=== PATIENT | female | born 1985 | race Two or more races ===

== ENCOUNTER 2024-09-21 08:30 | Outpatient (REF) | payer MEDICAID, SELFPAY ==
--- OUTSIDE RECORDS SUMMARY | 2024-09-21 08:40 | XMS_ITS | Encounter Summary ---
Author Organization [employer] Address [address] [place] [address] Care Team Providers Care Demand Equipment Repairer Name Role Phone Unavailable Primary Care Provider Unavailabl e Reason for Visit * Reason Onset Date Comments Chart Prep 09/19/2024 Encounter Details Date Type Department Care Team ([facility] st Contact Info) Description 09/19/2024 Telephone [facility] [address], [place] [phone] Sara Bolton MA Chart Prep Social History Tobacco Use Types Packs/Day Years Used Date Smoking Tobacco: Never Assessed Depression Answer Date Recorded Patient Health Questionnaire-9 Score 16 09/20/2024 Patient Health Questionnaire-9 Score 16 09/20/2024 Last PHQ-9: Questionnaire Data Not on file 0 09/20/2024 Housing Stability Answer Date Recorded What is your housing situation today? I have derek angel 09/12/[address] you li ve. Do you have problems with any of the following? Pests such as bugs, ants, or mice 09/12/2024 Food Insecurity Answer Date Recorded Within the past 12 months, y ou worried that your food would run out before you got money to buy more: Never True 09/12/2024 Within the past 12 months,th e food you bought just didn't last and you didn't have enough money to get more: Never True Transportation Answer Date Recorded In the past 12 months, has l ack of transportation kept you from medical appts, meetings, work or from getting things needed for daily living? No 09/12/2024 Utilities Answer Date Recorded In the past 12 months, has t he electric, gas, oil or water company threatened to shut off services in your home? No 09/12/2024 Depression Answer Date Recorded Patient Health Questionnaire-2 Score 3 09/20/2024 Internet Access Answer Date Recorded Internet Access Q1 Yes 09/12/2024 Internet Access Q2 Not on file 09/12/2024 Comments Unknown Sex and Gender Information Value Date Recorded Sex Assigned at Female 06/25/2024 10:10 AM EST Legal Sex Female 10:09 AM EST Gender Identity Female 09/19/2024 9:18 AM EDT Sexual Orientation Don't know 09/19/2024 9: 18 AM EDT documented as of this encounter Miscellaneous Notes * Telephone Encounter - Sara Bolton MA - 09/19/2024 11:23 AM EDT Chart Prep Labs: not applicable Images: not applicable Referrals: not applicable Vaccines due: Covid, Flu, and Hep B Screenings: mammogram, pap smear, and Lipid panel, HIV, Hep C Overdue care gaps: SBIRT, PHQ-9, NIDIA-7, Disability screen, and Tobacco documented in this encounter Plan of Treatment Upcoming Encounters Date Type Department Care Team (Late st Contact Info) Description 10/05/2024 11:00 AM EDT Telemedicine [facility] [address] [place] [phone] documented as of this encounter Visit Diagnoses Not on filedocumented in this encounter
[2024-09-21 11:14] LABS: MANUAL DIFF FLAG NO
[2024-09-21 11:34] LABS: Basophils Absolute Auto 0.1 X10*3/uL (0.0-0.2); Basophils Percent Auto 0.7 % (0-2); Eosinophils Absolute Auto 0.1 X10*3/uL (0.0-0.4); Hematocrit 39.2 % (37.0-47.0); Hemoglobin 12.6 g/dl (12.0-16.0); Imm Gran Abs Auto 0.02 X10*3/uL (0.00-0.03); Imm Gran Pct Auto 0.3 % (0.0-0.4); Lymphocytes Percent Auto 29.8 % (20-40); Mean Corpuscular HGB Conc 32.1 g/dl (31.0-35.0); Mean Corpuscular Hemoglobin 27.4 pg (27.0-33.0); Mean Corpuscular Volume 85.2 fL (80.0-98.0); Monocytes Absolute Auto 0.6 X10*3/uL (0.1-1.2); Monocytes Percent Auto 8.6 % (2-11); Neutrophils Absolute Auto 4.1 x10*3/uL (2.0-8.3); Neutrophils Percent Auto 59.6 % (45-73); Red Cell Distribution Width 13.1 % (11.0-16.0); White Blood Count 6.8 X10*3/uL (4.8-10.8)
[2024-09-21 12:01] LABS: Mean Platelet Volume 12.5 fL (9.4-12.3); Platelet Count 80 X10*3/uL (160-400)
[2024-09-21 12:11] LABS: Alanine Aminotransferase 20 U/L (0-31); Albumin Level 4.4 g/dL (3.5-5.0); Alkaline Phosphatase 53 U/L (39-117); Anion Gap 12 (12-20); Aspartate Amino Transferase 23 U/L (5-31); Bilirubin Total 0.6 mg/dL (0.0-1.0); Blood Urea Nitrogen 15 mg/dL (9-16); Calcium 9.6 mg/dL (8.4-10.2); Carbon Dioxide 28 mmol/L (22-29); Chloride 107 mmol/L (96-108); Cholesterol 187 mg/dL (<200); Estimated Glomerular Filt Rate > 60; Glucose Random 87 mg/dL (60-115); HDL Cholesterol 41 mg/dL (>40); LDL Cholesterol Calculated 119 mg/dL (<100); Potassium 3.7 mmol/L (3.3-5.1); Sodium 143 mmol/L (135-145); TSH reflex Free T4 1.72 uIU/mL (0.32-4.0); Total Protein 7.8 g/dL (6.5-8.0); Triglycerides 139 mg/dL (<150)
[2024-09-22 06:04] LABS: Follicle Stimulating Hormone 8.5 mIU/mL
== END 2024-09-21 08:31 | disposition home or self-care (01) ==
LOC: HO.HHCL 08:30
PROVIDERS: Visit Provider Internal Medicine Geriatric Medicine
DX: I10 Essential (primary) hypertension (principal); F41.1 Generalized anxiety disorder; F43.10 Post-traumatic stress disorder, unspecified; Z98.84 Bariatric surgery status; R23.2 Flushing
CPT/HCPCS: 36415; 80053; 80061; 83001; 83002; 84443; 85025

== ENCOUNTER 2024-10-01 08:13 | Outpatient (REF) | payer MEDICAID, SELFPAY ==
[2024-10-01 11:31] LABS: MANUAL DIFF FLAG NO
[2024-10-01 11:39] LABS: Basophils Absolute Auto 0.1 X10*3/uL (0.0-0.2); Basophils Percent Auto 0.6 % (0-2); Eosinophils Absolute Auto 0.1 X10*3/uL (0.0-0.4); Eosinophils Percent Auto 1.1 % (0-4); Hematocrit 36.7 % (37.0-47.0); Hemoglobin 11.6 g/dl (12.0-16.0); Imm Gran Abs Auto 0.02 X10*3/uL (0.00-0.03); Imm Gran Pct Auto 0.3 % (0.0-0.4); Lymphocytes Absolute Auto 2.1 X10*3/uL (1.2-4.9); Lymphocytes Percent Auto 26.6 % (20-40); Mean Corpuscular HGB Conc 31.6 g/dl (31.0-35.0); Mean Corpuscular Hemoglobin 27.1 pg (27.0-33.0); Mean Corpuscular Volume 85.7 fL (80.0-98.0); Monocytes Absolute Auto 0.7 X10*3/uL (0.1-1.2); Monocytes Percent Auto 8.9 % (2-11); Neutrophils Absolute Auto 4.9 x10*3/uL (2.0-8.3); Neutrophils Percent Auto 62.5 % (45-73); Red Blood Count 4.28 X10*6/uL (4.20-5.50); Red Cell Distribution Width 12.9 % (11.0-16.0); White Blood Count 7.9 X10*3/uL (4.8-10.8)
[2024-10-01 11:41] LABS: Platelet Count 69 X10*3/uL (160-400)
== END 2024-10-01 08:14 | disposition home or self-care (01) ==
LOC: HO.HHCL 08:13
PROVIDERS: Visit Provider Internal Medicine Geriatric Medicine
DX: D69.6 Thrombocytopenia, unspecified (principal)
CPT/HCPCS: 36415; 85025

== ENCOUNTER 2024-10-17 09:11 | Outpatient (REF) | payer MEDICAID, SELFPAY ==
--- NOTE | ~2024-10-17 | XR_ITS ---
EXAMINATION: XR SHOULDER, RIGHT CLINICAL INFORMATION: Several day h/o right shoulder pain after lifting heavy object COMPARISON: None available. TECHNIQUE: AP external rotation, Grashey, scapular Y, and axillary views of the right shoulder. FINDINGS: No acute cortical disruption or malalignment. [place]-shaped calcification at the supraspinatus tendon insertion near the greater tuberosity of the right humerus. No lytic or blastic lesions. XR/XR shoulder RT min 2V IMPRESSION: Probable calcific tendinosis/tendinopathy, supraspinatus. Electronically signed by: Ramos Chaney MD 10/17/2024 09:31 AM EDT
--- OUTSIDE RECORDS SUMMARY | 2024-10-17 08:40 | XMS_ITS | Encounter Summary ---
Author Organization [employer] Address [address] [place] [address] Care Team Providers Care Sausage Maker Name Role Phone Name, Golden NOLASCO Primary Care Provider [phone] Reason for Referral * Consultation (Routine) - Pending Review Specialty Diagnoses / Procedures Referred By Saira yang Referred To Contact Orthopaedic Surgery Diagnoses Acute pain of right shoulder Abraham Wills MD [address] [place] [phone] Phone: tel: fax: Referral ID Status Reason Start Date Expiration Date Visits Requested Visits Authorized [id number] Pending Review Specialty Services Required 10/17/2024 10/17/2025 1 1 Reason for Visit * Reason Comments Arm Pain Encounter Details Date Type Department Care Team (Late st Contact Info) Description 10/17/2024 8:40 AM EDT Office Visit [facility] [address], [place] [phone] Acute pain of right shoulder (Primary Dx); Essential hypertension Social History Tobacco Use Types Packs/Day Years Used Date Smoking Tobacco: Never Smokeless Tobacco: Never Alcohol Use Standard Drinks/Week Comments Not Currently 0 (1 standard drink = 0.6 oz pur e alcohol) wine Depression Answer Date Recorded Patient Health Questionnaire-9 [...] Access Q2 Not on file 09/12/2024 Comments No Sex and Gender Information Value Date Recorded Sex Assigned at Female 06/25/2024 10:10 AM EST Legal Sex Female 10:09 AM EST Gender Identity Female 09/19/2024 9:18 AM EDT Sexual Orientation Don't know 09/19/2024 9: 18 AM EDT 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 Not on file Not on file Not on f ile documented as of this encounter Last Filed Vital Signs Vital Sign Reading Time Taken Comments Blood Pressure 140/96 10/17/2024 8:40 AM EDT Man ual Pulse 83 10/17/2024 8:38 AM EDT Temperature 37.1 C (98.7 F) 10/17/2024 8:38 AM EDT Respiratory Rate 18 10/17/2024 8:38 AM EDT Oxygen Saturation 99% 10/17/2024 8:38 AM EDT Inhaled Oxygen Concentration - - Weight 89.3 kg (196 lb 12.8 oz) 10/17/2024 8:38 AM EDT Height - - Body Mass Index 34.86 09/20/2024 10:39 AM EDT documented in this encounter Plan of Treatment Upcoming Encounters Date Type Department Care Team (Late st Contact Info) Description 10/30/2024 9:30 AM EDT Clinical Support [facility] [address] [place] [phone] Scheduled Referrals Name Type Priority Associated Diagnoses Order Schedule Referral to Orthopaedic Surgery Outpatient Referral Routine Acute pain of right shoulder Expected: 10/17/2024 (Approximate), Expires: 10/17/2025 documented as of this encounter Procedures Procedure Name Priority Date/Time Associated Diagnosis Comments XR SHOULDER 2+ VIEWS RIGHT Routine 10/17/2024 8:38 AM EDT Acute pain of right shoulder documented in this encounter Results * XR Shoulder 2+ Views Right (10/17/2024 8:38 AM EDT) Anatomical Region Laterality Modality Upper Extremities, Shoulder Right Radi ographic Imaging 10/17/2024 8:38 AM EDT Narrative 10/17/2024 9:34 AM EDT [address] [address] XRay Report Signed Patient: Luisana Fine MR#: [id number] : 1985 Acct:[id number] Age/Sex: 39 / F ADM Date: 10/17/24 Loc: HO.HHCX Attending Dr: Abraham Wills MD Ordering Physician: ABRAHAM WILLS MD Date of Service: 10/17/24 Procedure(s): XR shoulder RT min 2V Accession Number(s): [id number] cc: ABRAHAM WILLS MD; Name,Golden NOLASCO EXAMINATION: XR SHOULDER, RIGHT CLINICAL INFORMATION: Several day h/o right shoulder pain after lifting heavy object COMPARISON: None available. TECHNIQUE: AP external rotation, Grashey, scapular Y, and axillary views of the right shoulder. FINDINGS: No acute cortical disruption or malalignment. [place]-shaped calcification at the supraspinatus tendon insertion near the greater tuberosity of the right humerus. No lytic or blastic lesions. XR/XR shoulder RT min 2V IMPRESSION: Probable calcific tendinosis/tendinopathy, supraspinatus. Electronically signed by: Ramos Chaney MD 10/17/2024 09:31 AM EDT RP Dictated By: Ramos Chan MD Signed By: <Electronically signed by Ramos Riggs MD in OV> 10/17/24930 DD/ 7 TD/TT: 10/17/24927 Hand Clipper: Procedure Note Donotuseinterpreter, Image - 10/17/2024 [facility] [address] [place] [address] XRay Report Signed Patient: Luisana Fine CMR#: [id number] : 1985Acct:[id number] Age/Sex: 39 / FADM Date: 10/17/24 Loc: HO.HHCX Attending Dr: Abraham Wills MD Ordering Physician: ABRAHAM WILLS MD Date of Service: 10/17/24 Procedure(s): XR shoulder RT min 2V Accession Number(s): [id number] cc: ABRAHAM WILLS MD; Golden Mclaughlin MD EXAMINATION: XR SHOULDER, RIGHT CLINICAL INFORMATION: Several day h/o right shoulder pain after lifting heavy object COMPARISON: None available. TECHNIQUE: AP external rotation, Grashey, scapular Y, and axillary views of the right shoulder. FINDINGS: No acute cortical disruption or malalignment. [place]-shaped calcification at the supraspinatus tendon insertion near the greater tuberosity of the right humerus. No lytic or blastic lesions. XR/XR shoulder RT min 2V IMPRESSION: Probable calcific tendinosis/tendinopathy, supraspinatus. Electronically signed by: Ramos Chaney MD 10/17/2024 09:31 AM EDT Dictated By: Ramos Chan MD Signed By: <Electronically signed by Ramos Riggs MDin OV> 10/17/24930 DD/ 7 TD/TT: 10/17/24927 Hand Clipper: Abraham Wills MD IMG XR PROCEDURES Edited Result - Final documented in this encounter Visit Diagnoses Diagnosis Acute pain of right shoulder- Primary Essential hypertension Unspecified essential hypertension documented in this encounter Additional Health Concerns Assessment Noted Time PHQ-9 Depression Total Score: 16 09/20/2 025 11:16 AM EDT documented as of this encounter Care Teams Sausage Maker Relationship Specialty Start Date End Date Lissette, MD Golden [address] [place] [address] PCP - General Internal Medicine 09/20/24 documented as of this encounter
== END 2024-10-17 09:12 | disposition home or self-care (01) ==
LOC: HO.HHCX 09:11
PROVIDERS: PCP Internal Medicine Geriatric Medicine; Visit Provider Emergency Medicine
DX: M25.511 Pain in right shoulder (principal)
CPT/HCPCS: 73030

== ENCOUNTER → 2024-10-17 09:18 | Outpatient (BNV) | payer MEDICAID, SELFPAY | PROVIDERS: PCP Internal Medicine Geriatric Medicine; Visit Provider Radiology Diagnostic Radiology | DX: M25.511 Pain in right shoulder (principal) | CPT/HCPCS: 73030 ==

== ENCOUNTER 2024-11-01 15:31 | Outpatient (AMB) | payer MEDICAID, SELFPAY ==
--- NOTE | 2024-11-01 15:33 | MHC.OFFVIS ---
Vital Signs 11/01/24 15:36 Height 5 ft 3 in Weight 196 lb BMI 34.7 BP 133/78 Blood Pressure Location Rt brachial Position Sitting Pulse 89 Intake Visit Reasons: abd wall hernia Intake Note: Patient referred by pcp Dr. Mclaughlin for abdominal hernia. Patient c/o: painful when sitting for long period of time. Hx of umbilical hernia repair some time in 2017. Computed Tomography Scanner Operator Required: Yes Computed Tomography Scanner Operator Name: Nickie GOEL Accompanied by: Self / Same As Patient Allergies No Known Allergies Allergy (Verified 11/01/24 15:38) Medication List - Last Reconciled 11/01/24 by Messi Darling MD losartan 25 mg PO DAILY HPI HPI abd wall hernia: Details: [age] year old female referred for a possible epigastric hernia. She says she has had this mass on the epigastric area for over a year now. She says that this seems to have increased in size. She has describes discomfort She denies GI complaints She has had abdominoplasty in the past. She has had umbilical hernia repair, and cholecystectomy. She also has had bariatric surgery She denies GI complaints. [facility] Medical History Epigastric hernia Migraine with visual aura Helicobacter positive gastritis Endometriosis Dysmenorrhea Binge eating disorder Class 1 obesity due to excess calories with serious comorbidity and body mass index (BMI) of 33.0 to 33.9 in adult Generalized anxiety disorder Essential hypertension Seasonal allergies Post traumatic stress disorder (PTSD) Acanthosis nigricans Abnormal facial hair Bilateral carpal tunnel syndrome Adjustment disorder with anxious mood Uses intrauterine device for control History of Holter monitoring Fibroids Osteoarthritis of right hand Surgical History History of weight loss surgery Social History Patient Tobacco Use Status: Never used Tobacco Review of Systems Const Denies chills and Denies fever(s) Card Denies chest pain, Denies dyspnea and Denies dyspnea on exertion Resp Denies cough, Denies dyspnea and Denies dyspnea on exertion GI Denies hematochezia and Denies change in bowel habits Denies hematuria Musc Denies back pain and Denies limited range of motion Neuro Denies focal weakness and Denies convulsions Psych Denies depression and Denies mood swings Physical Exam Vital Signs: Last Vital Signs Pulse 89 11/01/24 15:36 BP 133/78 11/01/24 15:36 BMI result Body Mass Index 34.7 Const General: comfortable and no acute distress Orientation/consciousness: patient oriented x3 Neck Neck: Yes no lymphadenopathy Resp Auscultation: clear to auscultation bilaterally Cardio Rhythm: regular rhythm GI Other: Epigastric mass, about 5 cm across, not reducible, not tender, no skin changes Palpation (GI): Soft to palpation, nontender and no guarding Neuro General: patient oriented x3 Assessment & Plan Assessment & Plan (1) Epigastric hernia: Code(s): K43.9 - Ventral hernia without obstruction or gangrene Category: Medical Plan: She has this large epigastric mass that appears to be a hernia. This has not reducible. I am going to order for a CAT scan to define this hernia so we can plan for approach to surgery I will see her in the office after her CAT scan. I did explain to her briefly the technique of repair of the epigastric hernia She is comfortable with the plan. Orders: Orders CT abdomen pelvis wo IV con Today K43.9 - Ventral hernia without obstruction or gangrene Coding Level of Care Code New Pt Level 3 (84613) Diagnoses Epigastric hernia K43.9
--- OUTSIDE RECORDS SUMMARY | 2024-11-01 15:34 | XMS_ITS | Clinical Summary ---
Author Organization [employer] Address [address] [facility] [address] [place] [address] Care Team Providers Care Spray Stainer Name Role Phone Name, Golden NOLASCO Primary Care Provider Allergies Active Allergy Reactions Criticality Noted Date Comments Chlorthalidone Dizziness 05/25/2024 Dizziness and imbalance Medications * This document contains information received from the source organization and may not represent a complete record from that organization. Blood Pressure kitIndications:E ssential hypertension Use once a day 1 kit 5 Active lidocaine (Lidoderm) 5 % patch Apply 1 patch topically Once per day. Remove & discard patch within 12 hours or as directed by MD. 30 patch 2 5 10/18/19 26 Active tiZANidine (Zanaflex) 2 MG tablet Take 1 tablet (2 mg) by mouth if needed in the morning and at bedtime for muscle spasms. 30 tablet 1 5 Active losartan (Cozaar) 50 MG tablet Take 1 tablet (50 mg) by mouth Once per day. 30 tablet 11 5 10/31/19 26 Active losartan (Cozaar) 25 MG tablet Take 1 tablet (25 mg) by mouth Once per day. 30 tablet 2 5 10/31/19 25 Discontin ued(Dose adjustmen t) Active Problems Problem Noted Date Diagnosed Date Binge eating disorder 09/19/2024 Class 1 obesity 09/19/2024 Dysmenorrhea 09/19/2024 Endometriosis 09/19/2024 Helicobacter positive gastritis 09/19/2024 Migraine with visual aura 09/19/2024 Uses Bulgarian as primary spoken language 09/20/19 25 Class 1 obesity due to exces s calories with serious comorbidity and body mass index (BMI) of 33.0 to 33.9 in adult 10/17/2023 Generalized anxiety disorder 04/15/2022 Essential hypertension 02/25/2022 Seasonal allergies 10/21/2021 PTSD (post-traumatic stress disorder) 11/14/2019 Abnormal facial hair 12/10/2018 Acanthosis nigricans 12/10/2018 History of weight loss surgery 12/10/2018 Bilateral carpal tunnel syndrome 11/14/2018 Overview (09/19/2024): Per [facility] 09/15/2018 Electromyography reports Impression: abnormal study. 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 Expires on 08/03/24. Managed by [employer] perdue women History of Holter monitoring 08/07/2018 Overview (09/19/2024): [facility]3] Holter Report -07/20/18 Predominant rhythm is normal sinus rhythm. The average heart rate is 96 bpm. The minimum heart rate is 53 beats per minute, sinus bradycardia. The maximum heart rate is 189 beats per minute, sinus tachycardia. Occasional supraventricular ectopy. No AF,AFL,or SVT noted Occasional ventricular ectopy. No VT noted No high degree AV block. Prolonged pauses are not present. Symptoms did not correspond to any changes in heart rate or rhythm. Fibroids 07/05/2018 Bony growth 06/16/2018 Overview (09/19/2024): Left Hand Xray-03/30/18 at [facility] Impression: Negative. No abnormal bony growth is seen the DIP Joints. Intermittent pain and swelling of hand 9 Osteoarthritis of right hand 06/15/2018 Overview (09/19/2024): Right Hand Xray-03/30/18 at [facility]: There is mild DIP joint space narrowing most notably in the second and third fingers with early marginal osteophyte formation off the third DIP joint with mild overlying soft tissue prominence this region. No radiopaque foreign bodies are seen. No soft tissue gas. Impression: Mild second and third DIP osteoarthritis Encounters * This document contains information received from the source organization and may not represent a complete record from that organization. Date Type Department Care Team Description 10/30/2024 9:30 AM EDT Telemedicine [address] [address] Mary Reed, MAIA Essential hypertension 10/30/[address] [address] Golden Mclaughlin MD 10/30/2024 Travel 10/29/2024 Travel 10/17/2024 8:40 AM EDT Office Visit [facility] [address] [place] [phone] Abraham Wills MD Acute pain of right shoulder (Primary Dx); Essential hypertension 10/17/2024 Results Follow-Up [facility] [address] [place] [phone] Abraham Wills MD XR Shoulder 2+ Views Right 10/17/2024 Travel 10/05/2024 11:00 AM EDT Telemedicine [address] [address] Maria Alejandra Ryder RN Essential hypertension [I10] 09/26/2024 Results Follow-Up [address] [address] Golden Mclaughlin MD CBC auto differential, Comprehensive Metabolic Panel, Lipid Panel, Standard, Additional followed-up results: 4 09/20/2024 10:45 AM EDT Office Visit [address] [phone] Golden Mclaughlin MD Essential hypertension (Primary Dx); Generalized anxiety disorder; PTSD (post-traumatic stress disorder); History of weight loss surgery; Hot flashes; Abdominal wall hernia; Blurred vision, bilateral 09/20/2024 Travel 09/19/[address] [address] Saar Bolton [place] Chart Prep 09/17/2024 Patient Outreach [address] [phone] Golden Mclaughlin MD Care Coordination (CHW outreach for SDOH food needs-referral completed /) 09/12/2024 Patient Outreach [facility] [address] [place] [phone] Golden Mclaughlin MD Care Coordination (CHW outreach for SDOH PT-1 and food needs-LVM ) 09/12/2024 Patient Outreach [facility] [address] [place] [address] Golden Mclaughlin MD Pre-visit Planning ((SDOH screening positive tobacco screening negative) ) from Last 3 Months Immunizations Immunization Administration Dates Next Due Influenza Injectable Quadriv alant Preservative Free IIV4 MDCK 02/29/2020 Influenza injectable quadrivalent preservative f ree 04/06/2022,04/12/2019 Influenza, IIV3, injectable 03/08/2018, 5 Tdap 04/12/2019 Social History Tobacco Use Types Packs/Day Years Used Date Smoking Tobacco: Never Smokeless Tobacco: Never Tobacco Cessation:Counseling Given: Not Answered Alcohol Use Standard Drinks/Week Comments Not Currently [...] the past 12 months, has t he [employer], [employer], oil or water [employer] threatened to shut off services in your [...] Not on file Not on f ile Last Filed Vital Signs Vital Sign Reading [...] 12.8 oz) 10/17/2024 8:38 AM EDT Height 160 cm (5' 3 ) 09/20/2024 10:39 AM EDT Body Mass Index 34.86 09/20/2024 10:39 AM EDT Plan of Treatment Upcoming Encounters Date Type Department Care Team (Late st Contact Info) Description 11/13/2024 9:30 AM EDT Telemedicine [facility] [address] [place] [address] 01/08/2025 9:45 AM EDT Office Visit [facility] [address] [place] [address] Mallory Arita, OD [address] [place] [address] Health Maintenance Due Date Last Done Comments Family Planning (PISQ) 1998 Hepatitis C Screening 2001 Hepatitis B Vaccines (1 of 3 - 19+ 3-dose series) 2002 Pap Smear 2004 Cervical Cancer Screening 2013 HPV/Cotest 2013 Mammogram 2023 COVID-19 Vaccine ( season) 2024 12/26/2020, 12/05/2020 Influenza Vaccine (#1) 2024 2, 02/29/2020, 04/12/2019, Additional history exists Depression Monitoring 2025 09/20/2024, 025 SDOH Screening 09/12/2025 09/12/2024 Alcohol/Substance Use Screening 09/20/2025 09/20/2024 Disability Screening 10/29/2025 10/29/2024 Tobacco Screening 10/30/2025 10/30/2024 DTaP/Tdap/Td Vaccines (2 - Td or Tdap) 04/12/2029 04/12/2019 Lipid Panel 09/21/2029 09/21/2024 Zoster Vaccines (1 of 2) 2033 RSV Patients and Patients Aged 60 years or older (1 - 1-dose 75+ series) 2058 HIV Screening Completed 03/29/2018 HIB Vaccines Aged Out No longer eligi ble based on patient's age to complete this topic HPV Vaccines Aged Out No longer eligi ble based on patient's age to complete this topic Hepatitis A Vaccines Aged Out No long er eligible based on patient's age to complete this topic IPV Vaccines Aged Out No longer eligi ble based on patient's age to complete this topic Meningococcal B Vaccine Aged Out No l onger eligible based on patient's age to complete this topic Meningococcal Vaccine Aged Out No doroteo rica eligible based on patient's age to complete this topic Pneumococcal Vaccine: Pediatrics (0 to 5 Years) and At-Risk Patients (6 to 49) Years Aged Out No longer eligible based on patient's age to complete this topic RSV under 20 months Aged Out No longe r eligible based on patient's age to complete this topic Rotavirus Vaccines Aged Out No longer eligible based on patient's age to complete this topic Procedures Procedure Name Priority Date/Time Associated Diagnosis Comments XR SHOULDER 2+ VIEWS RIGHT Routine 10/17/2024 8:38 AM EDT Acute pain of right shoulder CBC WITH AUTO DIFFERENTIAL Routine 10/01/2024 8:15 AM EDT Low platelet count (CMS/HCC) LH Routine 09/21/2024 8:33 AM EDT Essential hypertension Generalized anxiety disorder PTSD (post-traumatic stress disorder) History of weight loss surgery Hot flashes FSH Routine 09/21/2024 8:33 AM EDT Essential hypertension Generalized anxiety disorder PTSD (post-traumatic stress disorder) History of weight loss surgery Hot flashes TSH W/REFLEX TO FT4 Routine 09/21/2024 8 :33 AM EDT Essential hypertension Generalized anxiety disorder PTSD (post-traumatic stress disorder) History of weight loss surgery Hot flashes LIPID PANEL, STANDARD Routine 09/21/2024 8:33 AM EDT Essential hypertension Generalized anxiety disorder PTSD (post-traumatic stress disorder) History of weight loss surgery Hot flashes COMPREHENSIVE METABOLIC PANEL Routine 09/21/2024 8:33 AM EDT Essential hypertension Generalized anxiety disorder PTSD (post-traumatic stress disorder) History of weight loss surgery Hot flashes CBC WITH AUTO DIFFERENTIAL Routine 09/21/2024 8:33 AM EDT Essential hypertension Generalized anxiety disorder PTSD (post-traumatic stress disorder) History of weight loss surgery Hot flashes from Last 3 Months Results * XR Shoulder 2+ Views Right (10/17/2024 8:38 AM EDT) Anatomical Region Laterality Modality Upper Extremities, Shoulder Right Radi ographic Imaging 10/17/2024 8:38 AM EDT Narrative 10/17/2024 9:34 AM EDT [address] [address] XRay Report Signed Patient: Luisana Fine MR#: [id number] : 1985 Acct:[id number] Age/Sex: 39 / F ADM Date: 10/17/24 Loc: HO.HHCX Attending Dr: Abraham Wills MD Ordering Physician: ABRAHAM WILLS MD Date of Service: 10/17/24 Procedure(s): XR shoulder RT min 2V Accession Number(s): [id number] cc: ABRAHAM WILLS MD; Name,Golden NOLASCO EXAMINATION: XR SHOULDER, RIGHT CLINICAL INFORMATION: Several day h/o right shoulder pain after lifting heavy object COMPARISON: None available. TECHNIQUE: AP external rotation, Grashey, scapular Y, and axillary views of the right shoulder. FINDINGS: No acute cortical disruption or malalignment. Wilmar-shaped calcification at the supraspinatus tendon insertion near the greater tuberosity of the right humerus. No lytic or blastic lesions. XR/XR shoulder RT min 2V IMPRESSION: Probable calcific tendinosis/tendinopathy, supraspinatus. Electronically signed by: Ramos Chaney MD 10/17/2024 09:31 AM EDT RP Dictated By: Ramos Chan MD Signed By: <Electronically signed by Ramos Riggs MD in OV> 10/17/2431 DD/ TD/TT: 10/17/2428 Nursing Executive: Procedure Note Donotuseinterpreter, Image - 10/17/[address] [address] XRay Report Signed Patient: Luisana Fine CMR#: [id number] : 1985Acct:[id number] Age/Sex: 39 / FADM Date: 10/17/24 Loc: HO.HHCX Attending Dr: Abraham Wills MD Ordering Physician: ABRAHAM WILLS MD Date of Service: 10/17/24 Procedure(s): XR shoulder RT min 2V Accession Number(s): [id number] cc: ABRAHAM WILLS MD; Name,Golden NOLASCO EXAMINATION: XR SHOULDER, RIGHT CLINICAL INFORMATION: Several day h/o right shoulder pain after lifting heavy object COMPARISON: None available. TECHNIQUE: AP external rotation, Grashey, scapular Y, and axillary views of the right shoulder. FINDINGS: No acute cortical disruption or malalignment. Wilmar-shaped calcification at the supraspinatus tendon insertion near the greater tuberosity of the right humerus. No lytic or blastic lesions. XR/XR shoulder RT min 2V IMPRESSION: Probable calcific tendinosis/tendinopathy, supraspinatus. Electronically signed by: Ramos Chaney MD 10/17/2024 09:31 AM EDT RP Dictated By: Ramos Chan MD Signed By: <Electronically signed by Ramos Riggs MDin OV> 10/17/2431 DD/ 7 TD/TT: 10/17/24927 Nursing Executive: Abraham Wills MD IMG XR PROCEDURES Edited Result - Final * (ABNORMAL) CBC auto differential (10/01/2024 8:15 AM EDT) Only the most recent of2 resultswithin the time period is included. White Blood Count 7.9 4.8 - 10.8 X10*3/uL [facility] Red Blood Count 4.28 4.20 - 5.50 X10*6/uL [facility] Hemoglobin 11.6(L) 12.0 - 16.0 g/dl [facility] Hematocrit 36.7(L) 37.0 - 47.0 % [facility] Mean Corpuscular Volume 85.7 80.0 - 98.0 fL [facility] Mean Corpuscular Hemoglobin 27.1 27.0 - 33.0 pg [facility] Mean Corpuscular HGB Conc 31.6 31.0 - 35.0 g/dl [facility] Red Cell Distribution Width 12.9 11.0 - 16.0 % [facility] Platelet Count 69(L) 160 - 400 X10*3/uL [facility] Mean Platelet Volume 13.0(H) 9.4 - 12.3 fL [facility] Neutrophils Percent Auto 62.5 45 - 73 % [facility] Imm Gran Pct Auto 0.3 0.0 - 0.4 % [facility] Lymphocytes Percent Auto 26.6 20 - 40 % [facility] Monocytes Percent Auto 8.9 2 - 11 % [facility] Eosinophils Percent Auto 1.1 0 - 4 % [facility] Basophils Percent Auto 0.6 0 - 2 % [facility] NRBC Pct Auto 0.0 0.0 - 0.2 /100WBC [facility] Neutrophils Absolute Auto 4.9 2.0 - 8.3 x10*3/uL [facility] Imm Gran Abs Auto 0.02 0.00 - 0.03 X10*3/uL [facility] Lymphocytes Absolute Auto 2.1 1.2 - 4.9 X10*3/uL [facility] Monocytes Absolute Auto 0.7 0.1 - 1.2 X10*3/uL [facility] Eosinophils Absolute Auto 0.1 0.0 - 0.4 X10*3/uL [facility] Basophils Absolute Auto 0.1 0.0 - 0.2 X10*3/uL [facility] NRBC Abs Auto 0.000 0.0 - 0.012 X10*3/uL [facility] Blood Venous blood specimen / Unknown 10/01/2024 8:15 AM EDT 10/01/2024 11:26 AM EDT us Golden Mclaughlin MD LAB BLOOD ORDERABLES Final Resul t Performing Organization Address City/[facility]/ZIP Co de Phone Number [facility] [address] [place] [phone] * TSH W/Reflex to FT4 (09/21/2024 8:33 AM EDT) TSH reflex Free T4 1.72 0.32 - 4.0 uIU/mL [facility] Blood Venous blood specimen / Unknown 09/21/2024 8:33 AM EDT 09/21/2024 11:03 AM EDT us Golden Mclaughlin MD LAB BLOOD ORDERABLES Final Resul t [facility] [address] [place] [phone] * LH (09/21/2024 8:33 AM EDT) Lutenizing Hormone 5.0 mIU/mL [facility] Comment:Reference Range Foll icular Phase 1.9-12.5 Mid-Cycle Peak 8.7-76.3 Luteal Phase 0.5-16.9 Postmenopausal 10.0-54.7THIS TEST WAS PERFORMED AT:[facility] [address] [id number] CORONADO MD Blood Venous blood specimen / Unknown 09/21/2024 8:33 AM EDT 09/21/2024 11:03 AM EDT us Golden Mclaughlin MD LAB BLOOD ORDERABLES Final Resul t Performing Organization Address [facility]/ZIP Co de Phone Number [facility] [address] [place] [phone] * FSH (09/21/2024 8:33 AM EDT) Follicle Stimulating Hormone 8.5 mIU/mL [facility] Comment:Reference Range Foll icular Phase 2.5-10.2 Mid-cycle Peak 3.1-17.7 Luteal Phase 1.5- 9.1 Postmenopausal 23.0-116.3THIS TEST WAS PERFORMED AT:[facility] [address] [id number] CORONADO MD Blood Venous blood specimen / Unknown 09/21/2024 8:33 AM EDT 09/21/2024 11:03 AM EDT us Golden Mclaughlin MD LAB BLOOD ORDERABLES Final Resul t [facility] [address] [place] [phone] * (ABNORMAL) Lipid Panel, Standard (09/21/2024 8:33 AM EDT) Triglycerides 139 <150 mg/dL [facility] Comment:Desirable Triglyceri de: less than 150 mg/dLBorderline High Triglyceride 150-199 mg/dLHigh Triglyceride: 200-499 mg/dLVery High Triglyceride: greater than or equal to 5OO mg/dL Cholesterol 187 <200 mg/dL [facility] Comment:Desirable Cholestero l: less than 200 mg/dLBorderline High Cholesterol: 200-239 mg/dLHigh Cholesterol: greater than 239 mg/dL LDL Cholesterol Calculated 119(H) <100 mg/dL [facility] Comment:Desirable LDL: less than 100 mg/dLNear Optimal/Above Optimal LDL: 110- 129 mg/dLBorderline High LDL: 130-159 mg/dLHigh LDL: 160-189 mg/dLVery High LDL: greater than or equal to 190 mg/dL HDL Cholesterol 41 >40 mg/dL [facility] Comment:Desirable HDL: great er than 40 mg/dL Note: This HDL assay may give artificially low results in patients with liver disease. Blood Venous blood specimen / Unknown 09/21/2024 8:33 AM EDT 09/21/2024 11:03 AM EDT us Golden Mclaughlin MD LAB BLOOD ORDERABLES Final Resul t [facility] [address] [place] [phone] * Comprehensive Metabolic Panel (09/21/2024 8:33 AM EDT) Sodium 143 135 - 145 mmol/L [facility] Potassium 3.7 3.3 - 5.1 mmol/L [facility] Chloride 107 96 - 108 mmol/L [facility] Carbon Dioxide 28 22 - 29 mmol/L [facility] Anion Gap 12 12 - 20 [facility] Urea Nitrogen (BUN) 15 9 - 16 mg/dL [facility] Creatinine, Serum 0.70 0.5 - 1.4 mg/dL [facility] Estimated Glomerular Filt Rate >60 [facility] Comment:Chronic Kidney Disea se: Estimated GFR < 60 mL/min/1.73h8Wismmn Kidney Disease: Estimated GFR < 15 mL/min/1.73m2 Glucose 87 60 - 115 mg/dL [facility] Calcium 9.6 8.4 - 10.2 mg/dL [facility] Bilirubin, Total 0.6 0.0 - 1.0 mg/dL [facility] Aspartate Amino Transferase 23 5 - 31 U/L [facility] Alanine Aminotransferase 20 0 - 31 U/L [facility] Total Protein 7.8 6.5 - 8.0 g/dL [facility] Albumin Level 4.4 3.5 - 5.0 g/dL [facility] Alkaline Phosphatase 53 39 - 117 U/L [facility] Blood Venous blood specimen / Unknown 09/21/2024 8:33 AM EDT 09/21/2024 11:03 AM EDT us Golden Mclaughlin MD LAB BLOOD ORDERABLES Final Resul t [facility] [address] [place] [phone] [phone] from Last 3 Months Insurance [facility] C3 Care Teams Spray Stainer Relationship Specialty Start Date End Date Name, MD Golden [address] [place] [address] PCP - General Internal Medicine 09/20/24
--- OUTSIDE RECORDS SUMMARY | 2024-11-01 15:34 | XMS_ITS | Clinical Summary ---
Author Organization [facility] Address [address] [place] [address] Care Team Providers Care Community Music Therapist Name Role Phone Jennifer Ramirez PA-C Primary Care Provider [phone] Source Comments PLEASE NOTE, if this patient is a minor, it may be UNLAWFUL to discuss sensitive information that is contained in these records (such as FAMILY PLANNING, MENTAL HEALTH or SUBSTANCE ABUSE) with the minor patient's parent or other person without the patient's specific authorization.[facility] Allergies Active Allergy Reactions Criticality Noted Date Comments Chlorthalidone Dizziness 05/25/2024 Dizziness and imbalance Medications miscellaneous medical supply miscIndications: Migraine without aura and without status migrainosus, not intractable by miscellaneous route once daily Blood pressure monitor cuff. Check BP daily. 1 Each 04/06/20 22 Active hydrOXYzine HCL (ATARAX) 25 mg tabletIndication s:Anxiety Take 1 Tablet by mouth nightly at bedtime as needed for anxiety or sleep 90 Tablet 1 06/03/19 24 Active docusate sodium (COLACE) 100 mg capsuleIndicatio ns:Other constipation Take 1 Capsule by mouth 2 (two) times daily 90 Capsule 06/03/19 24 Active loratadine (CLARITIN) 10 mg tabletIndication s:Nasal congestion Take 1 Tablet by mouth once daily as needed for allergies 90 Tablet 08/03/19 24 Active leuprolide (LUPRON DEPOT) 3.75 mg injectionIndicat ions:Endometrios is Inject 1 Syringe into the muscle every 28 days 1 Each 3 09/05/19 24 Active fluticasone (FLONASE) 50 mcg/actuation nasal sprayIndications :Nasal congestion SHAKE LIQUID AND USE 1 SPRAY IN EACH NOSTRIL DAILY 16 g 09/20/19 24 Active losartan-hydroch lorothiazide (HYZAAR) 100-12.5 mg per tablet Take 1 Tablet by mouth every morning stop losartan 100 mg 90 Tablet 1 04/27/20 24 Active diclofenac sodium (VOLTAREN) 1 % gel APPLY 2GM TOPICALLY TO AFFECTED AREA 4 TIMES DAILY 04/30/20 24 Active SLYND 4 mg (28) tab Take 1 Tablet by mouth once daily 03/26/20 24 Active meloxicam (MOBIC) 7.5 mg tablet Take 7.5 mg by mouth 2 (two) times daily 03/13/20 24 Active LILETTA 20.4 mcg/24 hr (8 yrs) 52 mg IUD PLEASE DELIVER TO THE [facility] [employer] [facility] FOR PROCEDURE WITH DR. MILLER ON 04/10 AT 1 PM. Active Active Problems Problem Noted Date Diagnosed Date Class 1 obesity due to exces s calories with serious comorbidity and body mass index (BMI) of 33.0 to 33.9 in adult 10/17/2023 Generalized anxiety disorder 04/15/2022 Essential hypertension 02/25/2022 Seasonal allergies 10/21/2021 PTSD (post-traumatic stress disorder) 11/14/2019 Chronic migraine 05/28/2019 History of weight loss surgery, gastric sleeve 0 12/10/2018 Abnormal facial hair 12/10/2018 Acanthosis nigricans, neck 12/10/2018 Bilateral carpal tunnel syndrome 11/14/2018 Overview (11/14/2018): Per [facility] 09/15/2018 Electromyography reports Impression: abnormal study. 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 Expires on 08/03/24. Managed by [facility] perdue women History of Holter monitoring 08/07/2018 Overview (08/29/2018): [facility] Holter Report -07/20/18 Predominant rhythm is normal [...] any changes in heart rate or rhythm. Assessment & Plan (08/08/2018 1:33 PM EDT): [facility]-07/20/18 Predominant rhythm is normal sinus rhythm. The [...] rhythm. Fibroids 07/05/2018 Bony growth 06/16/2018 Overview (06/16/2018): Left Hand Xray-03/30/18 at [facility] Impression: Negative. No abnormal bony growth is seen the DIP Joints. Osteoarthritis of right hand 06/15/2018 Overview (06/16/2018): Right Hand Xray-03/30/18 at [facility]: There is mild DIP joint space narrowing most notably in the second and third fingers with early marginal osteophyte formation off the third DIP joint with mild overlying soft tissue prominence this region. No radiopaque foreign bodies are seen. No soft tissue gas. Impression: Mild second and third DIP osteoarthritis Intermittent pain and swelling of hand 9 Immunizations Immunization Administration Dates Next Due Flu, Cell Culture based, Pre servative Free, 6m+, Flucelvax 02/29/2020 Flu, Preservative Free 04/06/2022,04/12/2019 TDAP 04/12/2019 Family History Medical History Relation Name Comments Hyperlipidemia Brother Diabetes Father High Cholesterol Father Hyperlipidemia Father Hypertension Maternal Grandmother Arthritis Mother Hypertension Mother Thyroid Disease Mother Cancer Other uncle spinal Relation Name Status Comments Brother Father Maternal Grandmother Mother Other uncle Social History Tobacco Use Types Packs/Day Years Used Date Smoking Tobacco: Never Smokeless Tobacco: Never Tobacco Cessation:Counseling Given: Not Answered Alcohol Use Standard Drinks/Week Comments No 0 (1 standard drink = 0.6 oz pur e alcohol) occasional Social Connections Answer Date Recorded Connectedness 2 06/03/2023 Financial Resource Strain Answer Date R ecorded Financial Resource Strain 2 2023 Stress Answer Date Recorded Stress 2 06/03/2023 Physical Activity Answer Date Recorded Physical Activity 0 11/14/2019 Food Insecurity Answer Date Recorded Food 2 06/03/2023 Transportation Needs Answer Date Record ed Transportation 2 06/03/2023 Housing Stability Answer Date Recorded Housing 2 06/03/2023 Safety and Environment Answer Date Hema rded Safety 0 06/24/2022 Utilities Answer Date Recorded Utilities 2 06/03/2023 Employment Answer Date Recorded Stress 0 11/14/2019 Comments No Sex and Gender Information Value Date Recorded Sex Assigned at Female 12/02/2017 1:41 PM PDT Legal Sex Female 9:09 AM PDT Gender Identity Female 12/02/2017 1:41 PM PDT Sexual Orientation Straight 11/16/2021 12 :27 PM PDT Occupation Industry Job Start Date Job End Date unemployed Not on file Not on file Not on file Last Filed Vital Signs Vital Sign Reading Time Taken Comments Blood Pressure 110/80 05/24/2024 3:10 PM EST Pulse 70 05/24/2024 3:10 PM EST Temperature 37.1 C (98.7 F) 10/28/2023 2:26 PM EDT Respiratory Rate 16 05/24/2024 3:10 PM EST Oxygen Saturation 99% 05/24/2024 3:10 PM EST Inhaled Oxygen Concentration - - Weight 88 kg (194 lb) 05/24/2024 3:10 PM EST Height 162.6 cm (5' 4 ) 05/24/2024 3:10 PM EST Body Mass Index 33.3 05/24/2024 3:10 PM EST Plan of Treatment Health Maintenance Due Date Last Done Comments Dental FMX/Pano 1983 HPV Screening 1983 LARC-Liletta IUD 1983 Pap + HPV 1983 Imm-Hepatitis B (1 of 3 - 19 + 3-dose series) 2002 Cervical Cancer Screening 2004 Pap Smear 2004 Anxiety Screening 06/09/2022 06/09/2021 Dental Perio Charting 02/26/2023 02/24/2022 Breast Cancer Screening (Mammogram) 2023 Relationship Safety Screening/Counseling 06/24/2023 06/24/2022, 06/09/2021, 11/14/2019 Dental BW 12/20/2023 12/17/2022, 02/24/2022 Dental Examination 12/20/2023 12/17/2022, 02/24/2022 Dental Prophy 12/20/2023 12/17/2022, 02/24/2022 Uga-SNPOS-75 ( season) 2024 021, 12/05/2020 Depression Annual Screen 05/02/2024 06/03/2023 Annual Wellness (Adult): Indicated (All Coverage) 06/03/2024 06/03/2023, 06/24/2022 Diabetes Screening 06/03/2024 06/03/2023, 0 06/03/2023, 04/07/2023, Additional history exists Imm-Influenza (#1) 2024 04/06/2022, 1 , 04/12/2019, Additional history exists Tobacco Screening 05/24/2025 05/24/2024, 10/17/2023 Lipid Screening 06/03/2026 06/03/2023, 06/02, 11/20/2021, Additional history exists Imm-DTaP/Tdap/Td (2 - Td or Tdap) 04/12/2029 019 HIV Screening Completed 03/29/2018 Hepatitis C Screening Completed 11/20/2021 Alcohol and Drug Screen Completed 05/24/19, 06/03/2023, 06/24/2022, Additional history exists Cervical Ablation/Cold-Knife Conization Discontinued Cervical Cryotherapy Discontinued Colposcopy Discontinued Endometrial Biopsy Discontinued Excision/Leep Discontinued HPV Genotyping Discontinued Vaginal Pap Discontinued Vulvoscopy Discontinued Procedures Procedure Name Priority Date/Time Associated Diagnosis Comments HGA1C W/EAG Routine 06/03/2023 8:40 AM EST Prediabetes LIPIDS W RFLX TO DIRECT LDL Routine 06/03/2023 8:40 AM EST Hypertension, essential BITEWINGS - FOUR RADIOGRAPHIC IMAGES Routine 12/17/2022 3:00 PM EDT Caries of enamel (incipient) Encounter for dental examination PROPHYLAXIS - ADULT Routine 12/17/2022 3 :00 PM EDT Caries of enamel (incipient) Encounter for dental examination PERIODIC ORAL EVALUATION ESTABLISHED PATIENT Routine 12/17/2022 3:00 PM EDT Caries of enamel (incipient) Encounter for dental examination COMP PERIODONTAL EVALUATION - NEW/EST PATIENT Routine 02/24/2022 9:00 AM EDT Gingivitis, chronic, plaque induced HEPATITIS C AB W/RFLX HCV RNA, QT, RT PCR Routine 11/20/2021 8:41 AM EDT Routine lab draw Encounter to establish care ANTIBODY HIV-1&HIV-2 SINGLE RESULT Routine 03/29/2018 9:43 AM EST Annual physical exam from Last 3 Months or Most Recently Relevant to Health Maintenance Results * HGA1C W/EAG (06/03/2023 8:40 AM EST) HEMOGLOBIN A1C 5.4 <5.7 % of total Hgb [facility] Comment: For the purpose of screening for the presence of diabetes: <5.7% Consistent with the absence of diabetes 5.7-6.4% Consistent with increased risk for diabetes (prediabetes) > or =6.5% Consistent with diabetes This assay result is consistent with a decreased risk of diabetes. Currently, no consensus exists regarding use of hemoglobin A1c for diagnosis of diabetes in children. According to [place] Diabetes Association (ADA) guidelines, hemoglobin A1c <7.0% represents optimal control in non- diabetic patients. Different metrics may apply to specific patient populations. Standards of Medical Care in Diabetes(ADA). EAG (MG/DL) 108 mg/dL [facility] EAG (MMOL/L) 6.0 mmol/L [facility] Blood Blood / Unknown 06/03/2023 8 :40 AM EST 06/03/2023 8:41 AM EST Narrative [facility] - 06/04/2023 8:45 AM EST FASTING:YES Jennifer Ramirez PA-C LAB - BLOOD DRAW Final Resul t Performing Organization Address [facility] Co de Phone Number [employer] [facility] [address] [address], [employer] [address] [address] * (ABNORMAL) LIPIDS W RFLX TO DIRECT LDL (06/03/2023 8:40 AM EST) CHOLESTEROL, TOTAL 227(H) <200 mg/dL [employer] [facility] HDL CHOLESTEROL 60 > OR = 50 mg/dL [employer] [facility] TRIGLYCERIDES 142 <150 mg/dL [employer] [facility] LDL-CHOLESTEROL 140(H) 99 mg/dL (calc) [employer] [facility] Comment: Reference range: <100 Desirable range <100 mg/dL for primary prevention; <70 mg/dL for patients with CHD or diabetic patients with > or = 2 CHD risk factors. LDL-C is now calculated using the Bryon-Yvonne calculation, which is a validated novel method providing better accuracy than the Friedewald equation in the estimation of LDL-C. Bryon SS et al. LEROY. 2013;310(19): 7698-1361 (http://education.[employer]/faq/JIE193) CHOL/HDLC RATIO 3.8 <5.0 (calc) [employer] [facility] NON-HDL CHOLESTEROL 167(H) <130 mg/dL (calc) [employer] [facility] Comment: For patients with diabetes plus 1 major ASCVD risk factor, treating to a non-HDL-C goal of <100 mg/dL (LDL-C of <70 mg/dL) is considered a therapeutic option. Blood Blood / Unknown 06/03/2023 8 :40 AM EST 06/03/2023 8:41 AM EST Narrative [facility] - 06/04/2023 8:45 AM EST FASTING:YES Jennifer Ramirez PA-C LAB - BLOOD DRAW Final Resul t Performing Organization Address City/[facility]/ZIP Co de Phone Number [facility] [address] [address], [employer] [facility] [address] [place] [address] * Hep C Antibody with Reflex HCV RNA (11/20/2021 8:41 AM EDT) HEPATITIS C ANTIBODY NON-REACT MINOO NON-REACT MINOO [employer] [facility] SIGNAL TO CUT-OFF 0.13 <[address] [facility] Comment: HCV antibody was non-reactive. There is no laboratory evidence of HCV infection. In most cases, no further action is required. However, if recent HCV exposure is suspected, a test for HCV RNA (test code 58536) is suggested. For additional information please refer to http://education.[employer] ([employer])/faq/ARW34v0 (This link is being provided for informational/ educational purposes only.) Blood Blood / Unknown 11/20/2021 8 :41 AM EDT 11/20/2021 8:42 AM EDT Jennifer Ramirez PA-C LAB - BLOOD DRAW Edited Resu lt - Final [employer] [facility] [employer] [address] [address], [employer] [address],[facility] [address] * HIV-1 & HIV-2 ANTIBODIES (03/29/2018 9:43 AM EST) Pathologist [facility] HIV 1 AND 2 ANTIBODY SCREEN NEGATIVE NEGATIVE [facility] Comment: This assay is a 4th generation assay allowing for earlier detection of HIV infection by detecting the presence of the HIV-1 p24 antigen as well as the traditional antibodies to HIV type 1 (including group O) and type 2. Use of a 4th generation assay is the current CDC recommendation for HIV screening. Blood specimen (specimen) Blood / Unknown 03/29/2018 9:43 AM EST 03/29/2018 9:45 AM EST Narrative [facility] - 03/29/2018 2:03 PM EST [employer], a member of [place] [address] [place] [address] Supervisor [employer] - Melody Graham MD PT ID [id number] ORD# [id number] Christina Hope PA-C LAB - BLOOD DRAW Final Result [facility] [address] [place] [address], from Last 3 Months or Most Recently Relevant to Health Maintenance Insurance [place]AF[place] [employer] [facility] [employer] [employer] Care Teams Community Music Therapist Relationship Specialty Start Date End Date Jennifer Ramirez PA-C [address] [place] [address] PCP - General Internal Medicine 11/05/21
[2024-11-01 15:36] VITALS: BP 133/78; PULSE 89; BMI 34.7
== END 2024-11-01 15:49 | disposition home or self-care (01) ==
LOC: HO.HGS 15:32
PROVIDERS: PCP Internal Medicine Geriatric Medicine; Referring Provider Internal Medicine Geriatric Medicine; Visit Provider Surgery
DX: K43.9 Ventral hernia without obstruction or gangrene (principal)
CPT/HCPCS: 99203

== ENCOUNTER → 2024-11-01 15:31 | Outpatient (BNVA) | payer MEDICAID, SELFPAY | PROVIDERS: PCP Internal Medicine Geriatric Medicine; Referring Provider Internal Medicine Geriatric Medicine; Visit Provider Surgery | DX: K43.9 Ventral hernia without obstruction or gangrene (principal) | CPT/HCPCS: 99202 ==

== ENCOUNTER 2024-11-17 07:26 | Outpatient (REF) | payer MEDICAID, SELFPAY ==
--- NOTE | ~2024-11-17 | CT_ITS ---
CLINICAL HISTORY: K43.9 - Ventral hernia without obstruction or gangrene CT abdomen and pelvis without contrast Comparison: None provided Findings: No consolidation or effusion. Cholecystectomy. Partial gastrectomy. Spleen, adrenals, kidneys, and liver are unremarkable. Close to empty urinary bladder. Ventral abdominal wall repair. 3 x 4.4 x 5.4 cm (AP by CC by transverse dimensions), thin rimmed fluid collection in the deep subcutaneous midline supraumbilical ventral abdominal wall fat likely due to postoperative fluid collection versus less likely abscess. Correlate clinically. Small fat containing uncomplicated umbilical hernia measuring up to 12 x 13 mm in the axial plane. Otherwise no evidence of residual or recurrent hernia. Centrally positioned uterine IUD. Left larger than right adnexal cysts (with an overall measurement of up to 7.4 cm at level of the left adnexa). Further characterization with ultrasound recommended. The bones are intact. IMPRESSION: 1. Centrally positioned uterine IUD. Left larger than right adnexal cysts (with an overall measurement of up to 7.4 cm at level of the left adnexa). Further characterization with ultrasound recommended. 2. Ventral abdominal wall repair. 3 x 4.4 x 5.4 cm (AP by CC by transverse dimensions), thin rimmed fluid collection in the deep subcutaneous midline supraumbilical ventral abdominal wall fat likely due to postoperative fluid collection versus less likely abscess. Correlate clinically. Small fat containing uncomplicated umbilical hernia measuring up to 12 x 13 mm in the axial plane. Otherwise no evidence of residual or recurrent hernia. This document has been electronically signed by: Kathryn Juárez MD on 11/19/2024 13:30:12
== END 2024-11-17 07:27 | disposition home or self-care (01) ==
LOC: HO.CT 07:26
PROVIDERS: PCP Internal Medicine Geriatric Medicine; Visit Provider Surgery
DX: K43.9 Ventral hernia without obstruction or gangrene (principal)
CPT/HCPCS: 74176

== ENCOUNTER → 2024-11-17 07:28 | Outpatient (BNV) | payer MEDICAID, SELFPAY | PROVIDERS: PCP Internal Medicine Geriatric Medicine; Visit Provider Radiology Diagnostic Radiology | DX: K42.9 Umbilical hernia without obstruction or gangrene (principal) | CPT/HCPCS: 74176 ==

== ENCOUNTER 2024-12-03 10:43 | Outpatient (AMB) | payer MEDICAID, SELFPAY ==
[2024-12-03 11:02] VITALS: BP 138/73; PULSE 86; BMI 34.7
--- NOTE | 2024-12-03 11:02 | MHC.OFFVIS ---
Vital Signs 12/03/24 11:02 Height 5 ft 3 in Weight 196 lb BMI 34.7 BP 138/73 Blood Pressure Location Rt brachial Position Sitting Pulse 86 Intake Visit Reasons: CT results Intake Note: Patient here to discuss abdomen pelvis CT on 11-17-2024. 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 I had seen her a month ago and my impression was this was then epigastric hernia. She had a previous umbilical hernia repair with mesh in 2017. I had sent for a CAT scan of the abdomen and pelvis to further define this mass. She denies any new complaints. [facility] Medical History (Updated 12/03/24 @ 11:30 by Messi Darling MD) Abdominal wall fluid collections Epigastric hernia Migraine with visual aura Helicobacter positive gastritis Endometriosis Dysmenorrhea Binge eating disorder Class 1 obesity due to excess calories with serious comorbidity and body mass index (BMI) of 33.0 to 33.9 in adult Generalized anxiety disorder Essential hypertension Seasonal allergies Post traumatic stress disorder (PTSD) Acanthosis nigricans Abnormal facial hair Bilateral carpal tunnel syndrome Adjustment disorder with anxious mood Uses intrauterine device for control History of Holter monitoring Fibroids Osteoarthritis of right hand Surgical History History of weight loss surgery Social History Household Members: Children Housing: Apartment Are you a primary patient care technician to a significant other at home: Yes Do you presently have visiting nurse or other home services: No Patient Tobacco Use Status: Never used Tobacco service: No Current occupational status: employed Review of Systems Const Denies chills and Denies fever(s) Card Denies chest pain, Denies dyspnea and Denies dyspnea on exertion Resp Denies cough, Denies dyspnea and Denies dyspnea on exertion GI Denies hematochezia and Denies change in bowel habits Denies hematuria Musc Denies back pain and Denies limited range of motion Neuro Denies focal weakness and Denies convulsions Psych Denies depression and Denies mood swings Physical Exam Vital Signs: Last Vital Signs Pulse 86 12/03/24 11:02 BP 138/73 12/03/24 11:02 BMI result Body Mass Index 34.7 Const General: comfortable and no acute distress Resp Effort & Inspection: normal respiratory effort Cardio Rate: regular rate GI Other: Soft, nontender mass about 4 cm in the epigastric area, no skin changes, not more protuberant with Valsalva Office Procedures FNAB Details: She was placed in supine position. The area of the abdominal wall mass was prepped and draped. Lidocaine 1% was used for local anesthesia. I then used a gauge 21 needle to aspirate the area. A about 10 cc of thin yellowish was aspirated. She tolerated procedure well. There were no immediate complications. Fine needle aspiration biopsy performed by: Messi Darling Assessment & Plan Assessment & Plan (1) Abdominal wall fluid collections: Code(s): R18.8 - Other ascites Category: Medical Plan: My initial impression of the abdominal wall mass when I 1st saw her was this was probably epigastric hernia. However, I had sent for a CAT scan and this shows a 3 x 4.4 x 5.4 cm thin rim fluid collection in the deep subcutaneous layer. I therefore explained to her that we can aspirate this fluid collection in the office under local anesthesia. I explained the technique of the procedure with her. I reviewed the risks, benefits and alternatives and she had given consent Needle aspiration was done in the office and yellowish colored fluid was aspirated. A total of about 10 cc of this was aspirated. She tolerated procedure well. There were no immediate complications I had sent this for cultures. I will see her again in the office in 2 weeks to see how she is doing. Coding Level of Care Code Est Pt Level 3 (60019) Diagnoses Abdominal wall fluid collections R18.8
--- OUTSIDE RECORDS SUMMARY | 2024-12-03 11:36 | XMS_ITS | Clinical Summary ---
Author Organization [facility] Address [address] [place] [address] Care Team Providers Care International Coordinator Name Role Phone Jennifer Ramirez PA-C Primary Care Provider [phone] Source Comments PLEASE NOTE, if this patient [...] 52 mg IUD PLEASE DELIVER TO THE [facility]EMENT [facility] FOR PROCEDURE WITH DR. MILLER [...] carpal tunnel syndrome 11/14/2018 Overview (11/14/2018): Per [facility] 09/15/2018 Electromyography reports Impression: abnormal study. 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 Expires on 08/03/24. Managed by [facility] perdue women History of Holter monitoring 08/07/2018 Overview (08/29/2018): [facility] Holter Report -07/20/18 Predominant rhythm [...] Assessment & Plan (08/08/2018 1:33 PM EDT): [facility]-07/20/18 Predominant rhythm is normal sinus [...] 06/16/2018 Overview (06/16/2018): Left Hand Xray-03/30/18 at [facility] Impression: Negative. No abnormal bony growth is seen the DIP Joints. Osteoarthritis of right hand 06/15/2018 Overview (06/16/2018): Right Hand Xray-03/30/18 at [facility]: There is mild DIP joint space [...] 12/17/2022, 02/24/2022 Dental Prophy 12/20/2023 12/17/2022, 02/24/2022 [id number] ( season) 2024 021, 12/05/2020 Depression Annual [...] A1C 5.4 <5.7 % of total Hgb [employer] Comment: For the purpose of screening for the presence of diabetes: <5.7% Consistent with the absence of diabetes 5.7-6.4% Consistent with increased risk for diabetes (prediabetes) > or =6.5% Consistent with diabetes This assay result is consistent with a decreased risk of diabetes. Currently, no consensus exists regarding use of hemoglobin A1c for diagnosis of diabetes in children. According to [place] Diabetes Association (ADA) guidelines, hemoglobin A1c <7.0% represents optimal control in non- diabetic patients. Different metrics may apply to specific patient populations. Standards of Medical Care in Diabetes(ADA). EAG (MG/DL) 108 mg/dL [facility] EAG (MMOL/L) 6.0 mmol/L [facility] Blood Blood / Unknown 06/03/2023 8 :40 AM EST 06/03/2023 8:41 AM EST Narrative [employer] [facility] - 06/04/2023 8:45 AM EST FASTING:YES Jennifer Ramirez PA-C LAB - BLOOD DRAW Final Resul t Performing Organization Address [facility] Co de Phone Number [facility] [address] [address], [facility] [address] [address] * (ABNORMAL) LIPIDS W RFLX TO DIRECT LDL (06/03/2023 8:40 AM EST) CHOLESTEROL, TOTAL 227(H) <200 mg/dL [facility] HDL CHOLESTEROL 60 > OR = 50 mg/dL [facility] TRIGLYCERIDES 142 <150 mg/dL [facility] LDL-CHOLESTEROL 140(H) 99 mg/dL (calc) [facility] Comment: Reference range: <100 Desirable range <100 mg/dL for primary prevention; <70 mg/dL for patients with CHD or diabetic patients with > or = 2 CHD risk factors. LDL-C is now calculated using the Bryon-Yvonne calculation, which is a validated novel method providing better accuracy than the Friedewald equation in the estimation of LDL-C. Bryon SS et al. LEROY. 2013;310(19): 2649-3292 (http://education.[employer]/faq/XKY619) CHOL/HDLC RATIO 3.8 <5.0 (calc) [facility] NON-HDL CHOLESTEROL 167(H) <130 mg/dL (calc) [facility] Comment: For patients with diabetes plus 1 major ASCVD risk factor, treating to a non-HDL-C goal of <100 mg/dL (LDL-C of <70 mg/dL) is considered a therapeutic option. Blood Blood / Unknown 06/03/2023 8:40 AM EST 06/03/2023 8:41 AM EST Narrative [employer] [facility] - 06/04/2023 8:45 AM EST FASTING:YES Jennifer Ramirez PA-C LAB - BLOOD DRAW Final Resul t Performing Organization Address City/[facility]/ZIP Co de Phone Number [employer] [facility] [address] [address], [facility] [address] [place] [address] * Hep C Antibody with Reflex HCV RNA (11/20/2021 8:41 AM EDT) HEPATITIS C ANTIBODY NON-REACT MINOO NON-REACT MINOO [facility] SIGNAL TO CUT-OFF 0.13 <1.00 [employer] [facility] Comment: HCV antibody was non-reactive. There is no laboratory evidence of HCV infection. In most cases, no further action is required. However, if recent HCV exposure is suspected, a test for HCV RNA (test code 01367) is suggested. For additional information please refer to http://education.[employer]/faq/HEW98w7 (This link is being provided for informational/ educational purposes only.) Blood Blood / Unknown 11/20/2021 8 :41 AM EDT 11/20/2021 8:42 AM EDT Jennifer Ramirez PA-C LAB - BLOOD DRAW Edited Resu lt - Final [facility] [place] [employer] [address] [address], [facility] [address],[facility] [address] * HIV-1 & HIV-2 ANTIBODIES (03/29/2018 9:43 AM EST) Pathologist [facility] HIV 1 AND 2 ANTIBODY SCREEN NEGATIVE NEGATIVE [facility] Comment: This assay is a 4th generation [...] AM EST 03/29/2018 9:45 AM EST Narrative [facility] - 03/29/2018 2:03 PM EST [employer], a member of [place] [address] [place] [address] 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
--- OUTSIDE RECORDS SUMMARY | 2024-12-03 11:36 | XMS_ITS | Encounter Summary ---
Author Organization [employer] Address [address] [place] [address] Care Team Providers Care Industrial Automation Engineer Name Role Phone Name, Golden NOLASCO Primary Care Provider [phone] Reason for Visit * Reason Onset Date Comments december recalls 11/30/2024 Encounter Details Date Type Department Care Team (Late st Contact Info) Description 11/30/2024 Telephone [facility] [address] [place], [place] [phone] Harley Waddell [place] december recalls Social History Tobacco Use Types Packs/Day Years [...] f ile documented as of this encounter Miscellaneous Notes * Telephone Encounter - Harley Waddell MA - 11/30/2024 10:51 AM EDT Telephone call to patient to schedule the following recall: Visit type: Follow up Appointment notes: HTN Patient agree to appointment on 03/01/25 at 9;15 AM with Name. documented in this encounter Plan of Treatment Upcoming Encounters Date Type Department Care Team (Late st Contact Info) Description 03/01/2025 9:15 AM EDT Office Visit [facility] [address] [place] [id number] NameGolden MD [address] [place] [address] documented as of this encounter Visit Diagnoses Not on filedocumented in this encounter Additional Health Concerns Assessment Noted Time PHQ-9 Depression Total Score: 16 025 11:16 AM EDT documented as of this encounter Care Teams Industrial Automation Engineer Relationship Specialty Start Date End Date NameGolden MD [address] [place] [id number] PCP - General Internal Medicine 09/20/24 documented as of this encounter
== END 2024-12-03 11:23 | disposition home or self-care (01) ==
LOC: HO.HGS 10:43
PROVIDERS: PCP Internal Medicine Geriatric Medicine; Visit Provider Surgery
DX: R18.8 Other ascites (principal)
CPT/HCPCS: 99213

== ENCOUNTER 2024-12-03 10:43 | Outpatient (REF) | payer MEDICAID, SELFPAY | END 2024-12-03 10:44 | disposition home or self-care (01) | LOC: HO.LAB 10:43 | PROVIDERS: PCP Internal Medicine Geriatric Medicine; Visit Provider Surgery | DX: R18.8 Other ascites (principal) | CPT/HCPCS: 10021; 87070; 87205; 99212 ==

== ENCOUNTER → 2024-12-17 13:20 | Outpatient (BNV) | payer MEDICAID, SELFPAY | PROVIDERS: PCP Internal Medicine Geriatric Medicine; Referring Provider Internal Medicine Geriatric Medicine; Visit Provider Nurse Practitioner Family | DX: D69.6 Thrombocytopenia, unspecified (principal) | CPT/HCPCS: 99204; 99213 ==

== ENCOUNTER 2024-12-17 14:08 | Outpatient (AMB) | payer MEDICAID, SELFPAY ==
--- NOTE | 2024-12-17 14:10 | A.OFFVIS_ITS ---
Vital Signs 12/17/24 14:14 Height 5 ft 3 in Weight 198 lb BMI 35.1 BP 136/85 Blood Pressure Location Lt brachial Position Sitting Pulse 87 Intake Visit Reasons: 2wk follow up abd ndl aspiration Intake Note: Patient here for 2wk s/p abdomen needle aspiration. Patient c/o: feels like more liquid needs to be drained. Denies pain or discomfort. Slasher Tender Helper Required: Yes Slasher Tender Helper Services: Slasher Tender Helper Offered & Declined Accompanied by: Self / Same As Patient Allergies No Known Allergies Allergy (Verified 12/17/24 14:14) Medication List - Last Reconciled 12/17/24 by Messi Darling MD losartan 50 mg PO DAILY HPI HPI 2wk follow up abd ndl aspiration: Details: She is here because of recurrence of her abdominal wall mass. I had aspirated this last November for has a CAT scan had shown as rim enhancing fluid collection and not a hernia She says that she has started to note recurrence of the mass. She says she has some discomfort with this. She denies any fever. [facility] Medical History Abdominal wall fluid collections Epigastric hernia Migraine with visual aura Helicobacter positive gastritis Endometriosis Dysmenorrhea Binge eating disorder Class 1 obesity due to excess calories with serious comorbidity and body mass index (BMI) of 33.0 to 33.9 in adult Generalized anxiety disorder Essential hypertension Seasonal allergies Post traumatic stress disorder (PTSD) Acanthosis nigricans Abnormal facial hair Bilateral carpal tunnel syndrome Adjustment disorder with anxious mood Uses intrauterine device for control History of Holter monitoring Fibroids Osteoarthritis of right hand Surgical History History of weight loss surgery Social History Household Members: Children Housing: Apartment Are you a primary patient care assistant to a significant other at home: Yes Do you presently have visiting nurse or other home services: No Patient Tobacco Use Status: Never used Tobacco service: No Current occupational status: employed Review of Systems Const Denies chills and Denies fever(s) Card Denies chest pain at rest Resp Denies cough GI Denies abdominal pain Physical Exam Vital Signs: Last Vital Signs Pulse 87 12/17/24 14:14 BP 136/85 12/17/24 14:14 BMI result Body Mass Index 35.1 Const General: comfortable and no acute distress Resp Effort & Inspection: normal respiratory effort Cardio Rate: regular rate GI Other: Well-defined subcutaneous mass epigastric area just above the umbilicus, non mobile Office Procedures FNA BIOPSY FNA Biopsy She was in supine position. The area of the abdominal wall fluid collection was prepped and draped. This appeared to be superficial. I therefore used a gauge 18 needle to aspirate the cavity. There was note of about 10 cc of thick fluid aspirated. She tolerated procedure well. There were no immediate complications. I did not repeat the cultures as the previous cultures did not reveal any growth. Fine Needle Aspiration: 13357- FNA 1st lesion w/o image Assessment & Plan Assessment & Plan (1) Abdominal wall fluid collections: Code(s): R18.8 - Other ascites Category: Medical Plan: She has a recurrence of the abdominal wall fluid collection. I had aspirated this 2 weeks ago She wants this reaspirated. The cultures previously did not reveal any growth I reviewed this with the technique of aspiration and I explained the risks stanislav efits, and alternatives The patient was done again with a gauge 18 needle. About 10 cc of thick fluid was aspirated. She tolerated procedure well. She was instructed to return if she notices recurrence of the abdominal wall fluid collection. She is comfortable with the plan. Coding Level of Care Code Procedure Only Diagnoses Abdominal wall fluid collections R18.8 CPT Codes FNA Biopsy - Fine Needle Aspiration: 12392- FNA 1st lesion w/o image ([id number])
[2024-12-17 14:14] VITALS: BP 136/85; PULSE 87; BMI 35.1
--- OUTSIDE RECORDS SUMMARY | 2024-12-17 14:55 | XMS_ITS | Clinical Summary ---
Author Organization [employer] Address [address] [facility] [address] [place] [address] Care Team Providers Care Regional Construction Manager Name Role Phone Name, Golden NOLASCO Primary Care Provider [phone] Allergies Active Allergy Reactions Criticality Noted Date Comments Chlorthalidone Dizziness 05/25/2024 Dizziness and imbalance Medications * This document contains information received from the source organization and may not represent a complete record from that organization. Blood Pressure kitIndications:Es sential hypertension Use once a day 1 kit [...] 30 tablet 11 5 10/31/19 26 Active Active Problems Problem Noted Date Diagnosed Date Binge eating disorder 09/19/2024 Class 1 obesity 09/19/2024 Dysmenorrhea 09/19/2024 Endometriosis 09/19/2024 Helicobacter positive gastritis 09/19/2024 Migraine with visual aura 09/19/2024 Uses Moroccan as primary spoken language 09/20/19 25 Class [...] carpal tunnel syndrome 11/14/2018 Overview (09/19/2024): Per [facility] 09/15/2018 Electromyography reports Impression: abnormal study. 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 Expires on 08/03/24. Managed by [facility] perdue women History of Holter monitoring 08/07/2018 Overview (09/19/2024): [facility] Holter Report -07/20/18 Predominant rhythm is normal [...] 06/16/2018 Overview (09/19/2024): Left Hand Xray-03/30/18 at [facility] Impression: Negative. No abnormal bony growth is seen the DIP Joints. Intermittent pain and swelling of hand 9 Osteoarthritis of right hand 06/15/2018 Overview (09/19/2024): Right Hand Xray-03/30/18 at [facility]: There is mild DIP joint space narrowing [...] organization. Date Type Department Care Team Description 11/30/2024 Telephone [facility] [address] [place] [address] Harley Waddell MA december recalls 11/21/2024 Results Follow-Up [facility] [address] [facility] [place] [address] Abdomen Pelvis w/o Contrast 11/20/2024 10:30 AM EDT Office Visit [facility] [address] [place] [address] Tararnulfo Mallory, OD Presbyopia (Primary Dx); White without pressure of peripheral retina of both eyes 11/20/2024 Travel 11/19/2024 Travel 11/17/2024 Orders Only [facility] External Provider, [facility] 11/14/2024 Telephone [facility] [address] [place] [address] Golden Mclaughlin MD Referral 11/13/2024 9:30 AM EDT Telemedicine [address] [address] Mary Reed, RN Essential hypertension 11/13/[address] [address] Golden Mclaughlin MD 11/13/2024 Travel 10/30/2024 9:30 AM EDT Telemedicine [facility] [place] [address] Mary Reed, RN Essential hypertension 10/30/[address] [address] Golden Mclaughlin MD 10/30/2024 Travel 10/29/2024 Travel 10/17/2024 8:40 AM EDT Office Visit [facility] [address] [place] [address] Abraham Moise MD Acute pain of right shoulder (Primary Dx); Essential hypertension 10/17/2024 Results Follow-Up [facility] [address] [place] [address] Abraham Moise MD XR Shoulder 2+ Views Right 10/17/2024 Travel 10/05/2024 11:00 AM EDT Telemedicine [address] [address] Maria Alejandra Ryder RN Essential hypertension [I10] 09/26/2024 Results Follow-Up [address] [address] Golden Mclaughlin MD CBC auto differential, Comprehensive Metabolic Panel, Lipid Panel, Standard, Additional followed-up results: 4 09/20/2024 10:45 AM EDT Office Visit [address] [address] Golden Mclaughlin MD Essential hypertension (Primary Dx); Generalized anxiety disorder; PTSD (post-traumatic stress disorder); History of weight loss surgery; Hot flashes; Abdominal wall hernia; Blurred vision, bilateral 09/20/2024 Travel 09/19/[address] [address] Sara Bolton MA Chart Prep 09/17/2024 Patient Outreach [address] [address] Golden Mclaughlin MD Care Coordination (CH[facility] outreach for SDOH food needs-referral completed /) from Last 3 Months Immunizations Immunization Administration [...] Description 03/01/2025 9:15 AM EDT Office Visit [facility] [address] [place] [address] Name, MD Golden [address] [place] [address] Health Maintenance Due Date Last Done Comments Family Planning (PISQ) 1998 HPV Vaccines (1 - 3-dose series) 1998 Hepatitis C Screening 2001 Hepatitis B Vaccines (1 of 3 - 19+ 3-dose series) 2002 Pap Smear 2004 Cervical Cancer Screening 2013 HPV/Cotest 2013 Mammogram 2023 COVID-19 Vaccine ( season) 2024 12/26/2020, 12/05/2020 Influenza Vaccine (#1) 2024 , 02/29/2020, 04/12/2019, Additional history exists Depression Monitoring 2025 09/20/2024, 025 SDOH Screening 09/12/2025 09/12/2024 Alcohol/Substance Use Screening 09/20/2025 09/20/2024 Disability Screening 10/29/2025 10/29/2024 Tobacco Screening 11/20/2025 11/20/2024 DTaP/Tdap/Td Vaccines (2 - Td or Tdap) [...] Procedure Name Priority Date/Time Associated Diagnosis Comments GRAM STAIN RESULT (NON ORDERABLE) Routine 12/03/2024 11:[address] ABDOMEN PELVIS WO CONTRAST Routine 11/19/2024 1:30 PM EDT XR SHOULDER 2+ VIEWS RIGHT Routine 10/17/2024 [...] flashes from Last 3 Months Results * Gram Stain Result (12/03/2024 11:00 AM EDT) 12/03/2024 11:0 0 AM EDT 12/03/2024 12:02 PM EDT Comment:Abdom Fld Narrative [facility] - 12/05/2024 8:13 AM EDT MID ABDOMEN Gram stain results: No polys No organisms seen MID ABDOMEN Routine Culture No growth after 2 days Specimen Source: Abdominal Fluid us Generic External Data Provider HISTORICAL/NON OR DERABLE LABS Final Result Performing Organization Address City/State/[facility] Co de Phone Number [facility] [address] [place] [phone] * CT Abdomen Pelvis w/o Contrast (11/19/2024 1:30 PM EDT) Anatomical Region Laterality Modality Body, Pelvis, Abdomen Computed T omography 11/19/2024 1:30 PM EDT Narrative 11/19/2024 1:31 PM EDT [address] [address] [address] Scan Report Signed Patient: Luisana Fine MR#: [id number] : 1985 Acct:[id number] Age/Sex: 39 / F ADM Date: 11/17/24 Loc: HO.CT Attending Dr: Messi Darling MD Ordering Physician: Messi Darling MD Date of Service: 11/17/24 Procedure(s): CT abdomen pelvis wo IV con Accession Number(s): [id number] cc: Messi Darling MD; Name,Golden NOLASCO Report Number: [id number]: Total DLP = 941.00 mGy-cm CLINICAL HISTORY: K43.9 - Ventral hernia without obstruction or gangrene CT abdomen and pelvis without contrast Comparison: None provided Findings: No consolidation or effusion. Cholecystectomy. Partial gastrectomy. Spleen, adrenals, kidneys, and liver are unremarkable. Close to empty urinary bladder. Ventral abdominal wall repair. 3 x 4.4 x 5.4 cm (AP by CC by transverse dimensions), thin rimmed fluid collection in the deep subcutaneous midline supraumbilical ventral abdominal wall fat likely due to postoperative fluid collection versus less likely abscess. Correlate clinically. Small fat containing uncomplicated umbilical hernia measuring up to 12 x 13 mm in the axial plane. Otherwise no evidence of residual or recurrent hernia. Centrally positioned uterine IUD. Left larger than right adnexal cysts (with an overall measurement of up to 7.4 cm at level of the left adnexa). Further characterization with ultrasound recommended. The bones are intact. IMPRESSION: 1. Centrally positioned uterine IUD. Left larger than right adnexal cysts (with an overall measurement of up to 7.4 cm at level of the left adnexa). Further characterization with ultrasound recommended. 2. Ventral abdominal wall repair. 3 x 4.4 x 5.4 cm (AP by CC by transverse dimensions), thin rimmed fluid collection in the deep subcutaneous midline supraumbilical ventral abdominal wall fat likely due to postoperative fluid collection versus less likely abscess. Correlate clinically. Small fat containing uncomplicated umbilical hernia measuring up to 12 x 13 mm in the axial plane. Otherwise no evidence of residual or recurrent hernia. This document has been electronically signed by: Kathryn Juárez MD on 11/19/2024 13:30:12 Dictated By: Kathryn Juárez MD Signed By: <Electronically signed by Kathryn Juárez MD in OV> 11/19/24 1331 DD/ 1330 TD/TT: 11/19/24 1330 Watch Hairspring Assembler: Procedure Note Donotuseinterpreter, Image - 11/19/[address] [place] [address] [address] Scan Report Signed Patient: Luisana Fine CMR#: [id number] : 1985Acct:[id number] Age/Sex: 39 / FADM Date: 11/17/24 Loc: HO.CT Attending Dr: Messi Darling MD Ordering Physician: Messi Darling MD Date of Service: 11/17/24 Procedure(s): CT abdomen pelvis wo IV con Accession Number(s): [id number] cc: Messi Darling MD; Name,Golden NOLASCO Report Number: [id number]: Total DLP = 941.00 mGy-cm CLINICAL HISTORY: K43.9 - Ventral hernia without obstruction or gangrene CT abdomen and pelvis without contrast Comparison: None provided Findings: No consolidation or effusion. Cholecystectomy. Partial gastrectomy. Spleen, adrenals, kidneys, and liver are unremarkable. Close to empty urinary bladder. Ventral abdominal wall repair. 3 x 4.4 x 5.4 cm (AP by CC by transverse dimensions), thin rimmed fluid collection in the deep subcutaneous midline supraumbilical ventral abdominal wall fat likely due to postoperative fluid collection versus less likely abscess. Correlate clinically. Small fat containing uncomplicated umbilical hernia measuring up to 12 x 13 mm in the axial plane. Otherwise no evidence of residual or recurrent hernia. Centrally positioned uterine IUD. Left larger than right adnexal cysts (with an overall measurement of up to 7.4 cm at level of the left adnexa). Further characterization with ultrasound recommended. The bones are intact. IMPRESSION: 1. Centrally positioned uterine IUD. Left larger than right adnexal cysts (with an overall measurement of up to 7.4 cm at level of the left adnexa). Further characterization with ultrasound recommended. 2. Ventral abdominal wall repair. 3 x 4.4 x 5.4 cm (AP by CC by transverse dimensions), thin rimmed fluid collection in the deep subcutaneous midline supraumbilical ventral abdominal wall fat likely due to postoperative fluid collection versus less likely abscess. Correlate clinically. Small fat containing uncomplicated umbilical hernia measuring up to 12 x 13 mm in the axial plane. Otherwise no evidence of residual or recurrent hernia. This document has been electronically signed by: Kathryn Juárez MD on 11/19/2024 13:30:12 Dictated By: Kathryn Juárez MD Signed By: <Electronically signed by Kathryn Juárez MD in OV> 11/19/24 1331 DD/ 1330 TD/TT: 11/19/24 1330 Watch Hairspring Assembler: [facility] External Provider IMG CT PROCEDURES Final Result * XR Shoulder 2+ Views Right (10/17/2024 8:38 AM EDT) Anatomical Region Laterality Modality Upper Extremities, Shoulder Right Radi ographic Imaging 10/17/2024 8:38 AM EDT Narrative 10/17/2024 9:34 AM EDT [address] [address] XRay Report Signed Patient: Luisana Fine MR#: [id number] : 1985 Acct:[id number] Age/Sex: 39 / F ADM Date: 10/17/24 [facility]: Abraham Moise MD Ordering Physician: ABRAHAM MOISE MD Date of Service: 10/17/24 Procedure(s): XR shoulder RT min 2V Accession Number(s): [id number] cc: ABRAHAM MOISE MD; Name,Golden NOLASCO EXAMINATION: XR SHOULDER, RIGHT CLINICAL INFORMATION: Several day h/o right shoulder pain after lifting heavy object COMPARISON: None available. TECHNIQUE: AP external rotation, Grashey, scapular Y, and axillary views of the right shoulder. FINDINGS: No acute cortical disruption or malalignment. [place]-shaped calcification at the supraspinatus tendon insertion near the greater tuberosity of the right humerus. No lytic or blastic lesions. XR/XR shoulder RT min 2V IMPRESSION: Probable calcific tendinosis/tendinopathy, supraspinatus. Electronically signed by: Ramos Chaney MD 10/17/2024 09:31 AM EDT Dictated By: Ramos Chan MD Signed By: <Electronically signed by Ramos Riggs MD in OV> 10/17/24 0931 DD/ 0838 TD/TT: 10/17/24 0928 Watch Hairspring Assembler: Procedure Note Donotuseinterpreter, Image - 10/17/[address] [address] XRay Report Signed Patient: Luisana Fine CMR#: [id number] : 1985Acct:[id number] Age/Sex: 39 / FADM Date: 10/17/24 [facility]: Abraham Moise MD Ordering Physician: ABRAHAM MOISE MD Date of Service: 10/17/24 Procedure(s): XR shoulder RT min 2V Accession Number(s): [id number] cc: ABRAHAM MOISE MD; Name,Golden NOLASCO EXAMINATION: XR SHOULDER, RIGHT CLINICAL INFORMATION: Several day h/o right shoulder pain after lifting heavy object COMPARISON: None available. TECHNIQUE: AP external rotation, Grashey, scapular Y, and axillary views of the right shoulder. FINDINGS: No acute cortical disruption or malalignment. [place]-shaped calcification at the supraspinatus tendon insertion near the greater tuberosity of the right humerus. No lytic or blastic lesions. XR/XR shoulder RT min 2V IMPRESSION: Probable calcific tendinosis/tendinopathy, supraspinatus. Electronically signed by: Ramos Chaney MD 10/17/2024 09:31 AM EDT RP Dictated By: Ramos Chan MD Signed By: <Electronically signed by Ramos Riggs MDin OV> 10/17/2431 DD/ 7 TD/TT: 10/17/[address] Watch Hairspring Assembler: Abraham Moise MD IMG XR PROCEDURES Edited Result - Final * (ABNORMAL) CBC auto differential (10/01/2024 8:15 AM EDT) Only the most recent of2 resultswithin the time period is included. White Blood Count 7.9 4.8 - 10.8 X10*3/uL [facility] Red Blood Count 4.28 4.20 - 5.50 X10*6/uL [facility] Hemoglobin 11.6(L) 12.0 - 16.0 g/dl [facility] Hematocrit 36.7(L) 37.0 - 47.0 % [facility] Mean Corpuscular Volume 85.7 80.0 - 98.0 fL [facility] Mean Corpuscular Hemoglobin 27.1 27.0 - 33.0 pg [facility] Mean Corpuscular HGB Conc 31.6 31.0 - 35.0 g/dl [facility] Red Cell Distribution Width 12.9 11.0 - 16.0 % [facility] Platelet Count 69(L) 160 - 400 X10*3/uL [facility] Mean Platelet Volume 13.0(H) 9.4 - 12.3 fL [facility] Neutrophils Percent Auto 62.5 45 - 73 % [facility] Imm Gran Pct Auto 0.3 0.0 - 0.4 % [facility] Lymphocytes Percent Auto 26.6 20 - 40 % [facility] Monocytes Percent Auto 8.9 2 - 11 % [facility] Eosinophils Percent Auto 1.1 0 - 4 % [facility] Basophils Percent Auto 0.6 0 - 2 % [facility] NRBC Pct Auto 0.0 0.0 - 0.2 /100WBC [facility] Neutrophils Absolute Auto 4.9 2.0 - 8.3 x10*3/uL [facility] Imm Gran Abs Auto 0.02 0.00 - 0.03 X10*3/uL [facility] Lymphocytes Absolute Auto 2.1 1.2 - 4.9 X10*3/uL [facility] Monocytes Absolute Auto 0.7 0.1 - 1.2 X10*3/uL [facility] Eosinophils Absolute Auto 0.1 0.0 - 0.4 X10*3/uL [facility] Basophils Absolute Auto 0.1 0.0 - 0.2 X10*3/uL [facility] NRBC Abs Auto 0.000 0.0 - 0.012 X10*3/uL [facility] Blood Venous blood specimen / Unknown 10/01/2024 8:15 AM EDT 10/01/2024 11:26 AM EDT us Golden Name MD LAB BLOOD ORDERABLES Final Resul t [facility] [address] [place] [phone] * TSH W/Reflex to FT4 (09/21/2024 8:33 AM EDT) TSH reflex Free T4 1.72 0.32 - 4.0 uIU/mL [facility] Blood Venous blood specimen / Unknown 09/21/2024 8:33 AM EDT 09/21/2024 11:03 AM EDT us Golden Mclaughlin MD LAB BLOOD ORDERABLES Final Resul t Performing Organization Address [facility] de Phone Number [facility] [address] [place] [phone] * LH (09/21/2024 8:33 AM EDT) Lutenizing Hormone 5.0 mIU/mL [facility] Comment:Reference Range Foll icular Phase 1.9-12.5 Mid-Cycle Peak 8.7-76.3 Luteal Phase 0.5-16.9 Postmenopausal 10.0-54.7THIS TEST WAS PERFORMED AT:[employer] [address] [phone] CORONADO MD Blood Venous blood specimen / Unknown 09/21/2024 8:33 AM EDT 09/21/2024 11:03 AM EDT us Golden Mclaughlin MD LAB BLOOD ORDERABLES Final Resul t Performing Organization Address [facility] Co de Phone Number [facility] [address] [place] [phone] * FSH (09/21/2024 8:33 AM EDT) Follicle Stimulating Hormone 8.5 mIU/mL [facility] Comment:Reference Range Foll icular Phase 2.5-10.2 Mid-cycle Peak 3.1-17.7 Luteal Phase 1.5- 9.1 Postmenopausal 23.0-116.3THIS TEST WAS PERFORMED AT:[employer] [address] [phone] CORONADO MD Blood Venous blood specimen / Unknown 09/21/2024 8:33 AM EDT 09/21/2024 11:03 AM EDT Golden Mclaughlin MD LAB BLOOD ORDERABLES Final Resul t Performing Organization Address [facility] Co de Phone Number [facility] [address] [place] [phone] * (ABNORMAL) Lipid Panel, Standard (09/21/2024 8:33 AM EDT) Triglycerides 139 <150 mg/dL [facility] Comment:Desirable Triglyceri de: less than 150 mg/dLBorderline High Triglyceride 150-199 mg/dLHigh Triglyceride: 200-499 mg/dLVery High Triglyceride: greater than or equal to 5OO mg/dL Cholesterol 187 <200 mg/dL [facility] Comment:Desirable Cholestero l: less than 200 mg/dLBorderline High Cholesterol: 200-239 mg/dLHigh Cholesterol: greater than 239 mg/dL LDL Cholesterol Calculated 119(H) <100 mg/dL [facility] Comment:Desirable LDL: less than 100 mg/dLNear Optimal/Above Optimal LDL: 110- 129 mg/dLBorderline High LDL: 130-159 mg/dLHigh LDL: 160-189 mg/dLVery High LDL: greater than or equal to 190 mg/dL HDL Cholesterol 41 >40 mg/dL [facility] Comment:Desirable HDL: great er than 40 mg/dL Note: This HDL assay may give artificially low results in patients with liver disease. Blood Venous blood specimen / Unknown 09/21/2024 8:33 AM EDT 09/21/2024 11:03 AM EDT us Golden Mclaughlin MD LAB BLOOD ORDERABLES Final Resul t Performing Organization Address [facility]/ZIP Co de Phone Number [facility] [address] [place] [phone] * Comprehensive Metabolic Panel (09/21/2024 8:33 AM EDT) Sodium 143 135 - 145 mmol/L [facility] Potassium 3.7 3.3 - 5.1 mmol/L [facility] Chloride 107 96 - 108 mmol/L [facility] Carbon Dioxide 28 22 - 29 mmol/L [facility] Anion Gap 12 12 - 20 [facility] Urea Nitrogen (BUN) 15 9 - 16 mg/dL [facility] Creatinine, Serum 0.70 0.5 - 1.4 mg/dL [facility] Estimated Glomerular Filt Rate >60 [facility] Comment:Chronic Kidney Disea se: Estimated GFR < 60 mL/min/1.50g7Ugeeii Kidney Disease: Estimated GFR < 15 mL/min/1.73m2 Glucose 87 60 - 115 mg/dL [facility] Calcium 9.6 8.4 - 10.2 mg/dL [facility] Bilirubin, Total 0.6 0.0 - 1.0 mg/dL [facility] Aspartate Amino Transferase 23 5 - 31 U/L [facility] Alanine Aminotransferase 20 0 - 31 U/L [facility] Total Protein 7.8 6.5 - 8.0 g/dL [facility] Albumin Level 4.4 3.5 - 5.0 g/dL [facility] Alkaline Phosphatase 53 39 - 117 U/L [facility] Blood Venous blood specimen / Unknown 09/21/2024 8:33 AM EDT 09/21/2024 11:03 AM EDT us Golden Mclaughlin MD LAB BLOOD ORDERABLES Final Resul t [facility] [address] [place] [phone] from Last 3 Months Insurance [employer] [facility] Care Teams Regional Construction Manager Relationship Specialty Start Date End Date Name, MD Golden [address] [place], [place] [phone] PCP - General Internal Medicine 09/20/24
--- OUTSIDE RECORDS SUMMARY | 2024-12-17 14:55 | XMS_ITS | Clinical Summary ---
Author Organization [facility] Address [address] [place] [address] Care Team Providers Care [facility] Lab Technician Name Role Phone Jennifer Ramirez PA-C Primary Care Provider [phone] Source Comments PLEASE NOTE, if this patient [...] 52 mg IUD PLEASE DELIVER TO THE FIELD MECHANIC PROCEDUES UNIT FOR PROCEDURE WITH DR. MILLER [...] carpal tunnel syndrome 11/14/2018 Overview (11/14/2018): Per [facility] 09/15/2018 Electromyography reports Impression: abnormal study. 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 Expires on 08/03/24. Managed by FUNMI perdue women History of Holter monitoring 08/07/2018 Overview (08/29/2018): [facility] Holter Report -07/20/18 Predominant rhythm is normal [...] Assessment & Plan (08/08/2018 1:33 PM EDT): [facility]-07/20/18 Predominant rhythm is normal sinus rhythm. The [...] 06/16/2018 Overview (06/16/2018): Left Hand Xray-03/30/18 at [facility] Impression: Negative. No abnormal bony growth is seen the DIP Joints. Osteoarthritis of right hand 06/15/2018 Overview (06/16/2018): Right Hand Xray-03/30/18 at [facility]: There is mild DIP joint space [...] 12/17/2022, 02/24/2022 Dental Prophy 12/20/2023 12/17/2022, 02/24/2022 [id number] ( season) 2024 021, 12/05/2020 Depression Annual [...] A1C 5.4 <5.7 % of total Hgb pbsi Comment: For the purpose of screening for the presence of diabetes: <5.7% Consistent with the absence of diabetes 5.7-6.4% Consistent with increased risk for diabetes (prediabetes) > or =6.5% Consistent with diabetes This assay result is consistent with a decreased risk of diabetes. Currently, no consensus exists regarding use of hemoglobin A1c for diagnosis of diabetes in children. According to [place] Diabetes Association (ADA) guidelines, hemoglobin A1c <7.0% represents optimal control in non- diabetic patients. Different metrics may apply to specific patient populations. Standards of Medical Care in Diabetes(ADA). EAG (MG/DL) 108 mg/dL [facility] EAG (MMOL/L) 6.0 mmol/L [facility] Blood Blood / Unknown 06/03/2023 8 :40 AM EST 06/03/2023 8:41 AM EST Narrative [employer] [facility] - 06/04/2023 8:45 AM EST FASTING:YES Jennifer Ramirez PA-C LAB - BLOOD DRAW Final Resul t Performing Organization Address [facility] Co de Phone Number [employer] [facility] [address] [address], [employer] [address] [address] * (ABNORMAL) LIPIDS W RFLX TO DIRECT LDL (06/03/2023 8:40 AM EST) CHOLESTEROL, TOTAL 227(H) <200 mg/dL [employer] [facility] HDL CHOLESTEROL 60 > OR = 50 mg/dL [employer] [facility] TRIGLYCERIDES 142 <150 mg/dL [employer] [facility] LDL-CHOLESTEROL 140(H) 99 mg/dL (calc) [employer] [facility] Comment: Reference range: <100 Desirable range <100 mg/dL for primary prevention; <70 mg/dL for patients with CHD or diabetic patients with > or = 2 CHD risk factors. LDL-C is now calculated using the Bryon-Yvonne calculation, which is a validated novel method providing better accuracy than the Friedewald equation in the estimation of LDL-C. Bryon SS et al. LEROY. 2013;310(19): 0851-7046 (http://education.TheDressSpot.com/faq/TSX323) CHOL/HDLC RATIO 3.8 <5.0 (calc) [employer] [facility] NON-HDL CHOLESTEROL 167(H) <130 mg/dL (calc) [employer] [facility] Comment: For patients with diabetes plus 1 major ASCVD risk factor, treating to a non-HDL-C goal of <100 mg/dL (LDL-C of <70 mg/dL) is considered a therapeutic option. Blood Blood / Unknown 06/03/2023 8:40 AM EST 06/03/2023 8:41 AM EST [employer] [facility] - 06/04/2023 8:45 AM EST FASTING:YES Jennifer Ramirez PA-C LAB - BLOOD DRAW Final Resul t Performing Organization Address City/[facility]/ZIP Co de Phone Number [employer] [facility] [address] [address], [employer] [facility] [address] [place] [address] * Hep C Antibody with Reflex HCV RNA (11/20/2021 8:41 AM EDT) HEPATITIS C ANTIBODY NON-REACT MINOO NON-REACT MINOO [employer] [facility] SIGNAL TO CUT-OFF 0.13 <1.00 [employer] [facility] Comment: HCV antibody was non-reactive. There is no laboratory evidence of HCV infection. In most cases, no further action is required. However, if recent HCV exposure is suspected, a test for HCV RNA (test code 56398) is suggested. For additional information please refer to http://education.CraigsBlueBook/faq/BAS74a4 (This link is being provided for informational/ educational purposes only.) Blood Blood / Unknown 11/20/2021 8 :41 AM EDT 11/20/2021 8:42 AM EDT Jennifer Ramirez PA-C LAB - BLOOD DRAW Edited Resu lt - Final [employer] [address] [address], [employer] [address],[facility] [place] [address] * HIV-1 & HIV-2 ANTIBODIES (03/29/2018 9:43 AM EST) Pathologist [facility] HIV 1 AND 2 ANTIBODY SCREEN NEGATIVE NEGATIVE [employer] [facility] Comment: This assay is a 4th [...] AM EST 03/29/2018 9:45 AM EST Narrative [facility] - 03/29/2018 2:03 PM EST [employer], a member of [place] [address] [place] [address] Content Coordinator - Melody Graham MD PT ID [id number] ORD# [id number] Christina Hope PA-C LAB - BLOOD DRAW Final Result [facility] [address] [place] [address], from Last 3 Months or Most Recently Relevant to Health Maintenance Insurance [place] MEDICA[place] DENTAL HEALTH SAFETY NET [facility] Care Teams [facility] Technician Relationship Specialty Start Date End Date Jennifer Ramirez PA-C [address] [place] [address] PCP - General Internal Medicine 11/05/21
== END 2024-12-17 14:25 | disposition home or self-care (01) ==
LOC: HO.HGS 14:09
PROVIDERS: PCP Internal Medicine Geriatric Medicine; Visit Provider Surgery
DX: R19.00 Intra-abdominal and pelvic swelling, mass and lump, unspecified site (principal)
CPT/HCPCS: 10140

== ENCOUNTER → 2024-12-17 14:08 | Outpatient (BNVA) | payer MEDICAID, SELFPAY | PROVIDERS: PCP Internal Medicine Geriatric Medicine; Visit Provider Surgery | DX: R18.8 Other ascites (principal) | CPT/HCPCS: 10021; 10140 ==

== ENCOUNTER 2025-04-04 14:34 | Outpatient (AMB) | payer MEDICAID, SELFPAY ==
--- NOTE | 2025-04-04 14:38 | MHC.OFFVIS ---
Vital Signs 04/04/25 14:43 Height 5 ft 3 in Weight 201 lb 2 oz BMI 35.6 Intake Visit Reasons: abdominal wall fluid collection Intake Note: Patient presents for an assesment for abdominal wall mass. Pt c/o; reports pain/discomfort, denies fever, chills, nausea or vomiting. Certified Court/Medical Interpreter Required: Yes Certified Court/Medical Interpreter Language: Animal Shelter Supervisor Services: Certified Court/Medical Interpreter Present Certified Court/Medical Interpreter Name: Roverto Information Interpreted: non-clinical & clinical Accompanied by: Self / Same As Patient Allergies No Known Allergies Allergy (Verified 04/04/25 14:44) Medication List - Last Reconciled 04/04/25 by Messi Darling MD losartan 50 mg PO DAILY HPI HPI abdominal wall fluid collection: Details: She is here for follow-up for the abdominal wall mass that she has had. I had aspirated this in the past because of fluid contents on imaging studies. Etiology is uncertain although she does have a history of my plasty 2 years ago in [facility] She says that the abdominal wall mass is bothering her and she feels that this has healed up again. She denies GI complaints. [facility] Medical History (Updated 04/04/25 @ 14:58 by Messi Darling MD) Abdominal wall mass Abdominal wall fluid collections Epigastric hernia Migraine with visual aura Helicobacter positive gastritis Endometriosis Dysmenorrhea Binge eating disorder Class 1 obesity due to excess calories with serious comorbidity and body mass index (BMI) of 33.0 to 33.9 in adult Generalized anxiety disorder Essential hypertension Seasonal allergies Post traumatic stress disorder (PTSD) Acanthosis nigricans Abnormal facial hair Bilateral carpal tunnel syndrome Adjustment disorder with anxious mood Uses intrauterine device for control History of Holter monitoring Fibroids Osteoarthritis of right hand Surgical History Hx of umbilical hernia repair Hx of cholecystectomy S/P gastric sleeve procedure Social History Household Members: Children Housing: Apartment Are you a primary career discovery teacher to a significant other at home: Yes Do you presently have visiting nurse or other home services: No Alcohol intake: current Alcohol intake frequency: holidays/special occasions only Patient Tobacco Use Status: Never used Tobacco service: No Current occupational status: employed Review of Systems Const Denies chills and Denies fever(s) Card Denies chest pain at rest Resp Denies cough GI Denies abdominal pain and Denies vomiting Physical Exam Vital Signs: BMI result Body Mass Index 35.6 Const General: no acute distress and well developed Nutritional Appearance: obese Resp Effort & Inspection: normal respiratory effort Cardio Rate: regular rate GI Other: Vague palpable mass on the epigastric area, non mobile, non reducible Assessment & Plan Assessment & Plan (1) Abdominal wall mass: Code(s): R22.2 - Localized swelling, mass and lump, trunk Category: Medical Plan: She has this persistent abdominal wall mass. I had previously aspirated this in the office. I am going to order for repeat ultrasound prior to aspirating this again. I told her therefore that I will see her in the office after ultrasound and if she wants, I can we aspirate this if the ultrasound shows this to be fluid containing. She is comfortable with the plan Coding Level of Care Code Est Pt Level 3 (01948) Diagnoses Abdominal wall mass R22.2
[2025-04-04 14:43] VITALS: BMI 35.6
--- OUTSIDE RECORDS SUMMARY | 2025-04-04 20:25 | XMS_ITS | Encounter Summary ---
Author Organization [employer] Address [address] [place] [address] Care Team Providers Care Chemist Enzymes Name Role Phone Name, Golden NOLASCO Primary Care Provider [phone] Reason for Visit * Reason Comments Med Refill Encounter Details Date Type Department Care Team ([facility] st Contact Info) Description 01/08/2025 Refill [facility] WALK-IN CENTER [address] [place] [address] Abraham Moise MD [address] [place] [address] Social History Tobacco Use Types Packs/Day Years [...] f ile documented as of this encounter Plan of Treatment Upcoming Encounters Date Type Department Care Team (Late st Contact Info) Description 04/30/2025 10:15 AM EST Office Visit [facility] MEDICINE [address] [place] [address] Name, MD Golden [address] [place] [address] 06/14/2025 10:00 AM EST Nutrition [facility] DIABETES/NUTRITION [address] [place] [address] Crystal Welch, RD [address] [place] [address] documented as of this encounter Visit Diagnoses Not on filedocumented in this encounter Additional Health Concerns Assessment Noted Time PHQ-9 Depression Total Score: 16 025 11:16 AM EDT documented as of this encounter Care Teams Chemist Enzymes Relationship Specialty Start Date End Date NameGolden MD [address] [place] [id number] PCP - General Internal Medicine 09/20/24 documented as of this encounter
--- OUTSIDE RECORDS SUMMARY | 2025-04-04 20:25 | XMS_ITS | Clinical Summary ---
Author Organization [employer] Address [address] [place] [address] Care Team Providers Care Pharmacist In Charge Name Role Phone Name, Golden NOLASCO Primary Care Provider [phone] Allergies Active Allergy Reactions Criticality Noted Date [...] Once per day. 30 tablet 11 5 03/01/20 26 Active venlafaxine XR (Effexor XR) 37.5 MG 24 hr capsuleIndication s:Major depressive disorder, recurrent episode with anxious distress (CMS/HCC),Migrain e with visual aura Take 1 capsule (37.5 mg) by mouth Once per day. Do not crush or chew. 30 capsule 2 5 03/01/20 26 Active Active Problems Problem Noted Date Diagnosed Date Major depressive disorder, r ecurrent episode with anxious distress 03/01/2025 Binge eating disorder 09/19/2024 Dysmenorrhea 09/19/2024 Endometriosis 09/19/2024 Helicobacter positive gastritis 09/19/2024 Migraine with visual aura 09/19/2024 Uses Portuguese as primary spoken language 09/20/19 Generalized anxiety disorder 04/15/2022 Essential hypertension 02/25/2022 Seasonal allergies 10/21/2021 PTSD (post-traumatic stress disorder) 11/14/2019 Abnormal facial hair 12/10/2018 Acanthosis nigricans 12/10/2018 History of weight loss surgery 12/10/2018 Bilateral carpal tunnel syndrome 11/14/2018 Overview (09/19/2024): Per [facility] 09/15/2018 Electromyography reports Impression: abnormal study. 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 Expires on 08/03/24. Managed by FUNMI perdue women History of Holter monitoring 08/07/2018 Overview (09/19/2024): [facility] Holter Report -07/20/18 Predominant rhythm is normal [...] 06/16/2018 Overview (09/19/2024): Left Hand Xray-03/30/18 at [facility] Impression: Negative. No abnormal bony growth is seen the DIP Joints. Intermittent pain and swelling of hand 9 Osteoarthritis of right hand 06/15/2018 Overview (09/19/2024): Right Hand Xray-03/30/18 at [facility]: There is mild DIP joint space narrowing most notably in the second and third fingers with early marginal osteophyte formation off the third DIP joint with mild overlying soft tissue prominence this region. No radiopaque foreign bodies are seen. No soft tissue gas. Impression: Mild second and third DIP osteoarthritis Resolved Problems Problem Noted Date Diagnosed Date Resolved Date Class 1 obesity 09/19/2024 03/01/2025 Class 1 obesity due to exces s calories with serious comorbidity and body mass index (BMI) of 33.0 to 33.9 in adult 10/17/2023 03/01/2025 Encounters Date Type Department Care Team Description 03/01/2025 9:15 AM EDT Office Visit [facility] MEDICINE [address] [place], [place] [phone] Golden Mclaughlin MD Essential hypertension (Primary Dx); Complex cyst of uterine adnexa; Major depressive disorder, recurrent episode with anxious distress (CMS/HCC); Migraine with visual aura; Menorrhagia with irregular cycle; Class 2 obesity due to excess calories without serious comorbidity with body mass index (BMI) of 35.0 to 35.9 in adult; Encounter for immunization 03/01/2025 Travel 02/28/2025 Telephone [facility]EDS [address] [place] [address] Golden Mclaughlin MD Chart Prep 02/25/2025 Travel 01/08/2025 Refill [facility] WALK-IN [facility]ENTER [address] [place], [place] [phone] Abraham Moise MD from Last 3 Months Immunizations Immunization Administration Dates Next Due Influenza Injectable Quadriv alant Preservative Free IIV4 MDCK 02/29/2020 Influenza injectable quadrivalent preservative f ree 04/06/2022,04/12/2019 Influenza, IIV3, injectable 03/08/2018, 5 Influenza, seasonal, injectable, preservative fr ee 03/01/2025 Tdap 04/12/2019 Social History Tobacco Use Types [...] Sign Reading Time Taken Comments Blood Pressure 136/87 03/01/2025 9:16 AM EDT Pulse 83 03/01/2025 9:16 AM EDT Temperature 36.3 C (97.4 F) 03/01/2025 9:16 AM EDT Respiratory Rate 18 03/01/2025 9:16 AM EDT Oxygen Saturation 98% 03/01/2025 9:16 AM EDT Inhaled Oxygen Concentration - - Weight 90.2 kg (198 lb 12.8 oz) 03/01/2025 9:16 AM EDT Height 160 cm (5' 3 ) 03/01/2025 9:16 AM EDT Body Mass Index 35.22 03/01/2025 9:16 AM EDT Plan of Treatment Upcoming Encounters Date Type Department Care Team (Late st Contact Info) Description 04/30/2025 10:15 AM EST Office Visit [facility] MEDICINE [address] [place] [address] Name, MD Golden [address] [place], [place] [phone] 06/14/2025 10:00 AM EST Nutrition [facility] DIABETES/NUTRITION [address] [place], [place] [phone] Crystal Welch [address] [place], [place] [phone] Health Maintenance Due Date Last Done Comments Family Planning (PISQ) 1998 HPV Vaccines (1 - 3-dose series) 1998 Hepatitis C Screening 2001 Hepatitis B Vaccines (1 of 3 - 19+ 3-dose series) 2002 Pap Smear 2004 Cervical Cancer Screening 2013 HPV/Cotest 2013 Mammogram 2023 COVID-19 Vaccine ( - season) 2024 12/26/2020, 12/05/2020 Depression Monitoring 2025 09/20/2024, 025 SDOH Screening 09/12/2025 09/12/2024 Alcohol/Substance Use Screening 09/20/2025 09/20/2024 Disability Screening 10/29/2025 10/29/2024 Tobacco Screening 03/01/2026 03/01/2025 DTaP/Tdap/Td Vaccines (2 - Td or Tdap) 04/12/2029 04/12/2019 Lipid Panel 09/21/2029 09/21/2024 Zoster Vaccines (1 of 2) 2033 RSV Patients and Patients Aged 60 years or older (1 - 1-dose 75+ series) 2058 HIV Screening Completed 03/29/2018 Influenza Vaccine Completed 03/01/2025, , 02/29/2020, Additional history exists HIB Vaccines Aged Out No longer eligi [...] Procedure Name Priority Date/Time Associated Diagnosis Comments AMB REFERRAL TO OB-MULTI DISCIPLINED LANGUAGE ANALYST Routine 02/20/2025 Complex cyst of uterine adnexa LIPID PANEL, STANDARD Routine 09/21/2024 8:33 AM EDT Essential hypertension Generalized anxiety disorder PTSD (post-traumatic stress disorder) History of weight loss surgery Hot flashes from Last 3 Months or Most Recently Relevant to Health Maintenance Results * Referral to Obstetrics / Gynecology (02/20/2025) us Golden Mclaughlin MD OUTPATIENT REFERRAL ORDERABLES F inal Result * (ABNORMAL) Lipid Panel, Standard (09/21/2024 8:33 AM EDT) Triglycerides 139 <150 mg/dL [facility] Comment:Desirable Triglyceri de: less than 150 mg/dLBorderline High Triglyceride 150-199 mg/dLHigh Triglyceride: 200-499 mg/dLVery High Triglyceride: greater than or equal to 5OO mg/dL Cholesterol 187 <200 mg/dL [facility] Comment:Desirable Cholestero l: less than 200 mg/dLBorderline High Cholesterol: 200-239 mg/dLHigh Cholesterol: greater than 239 mg/dL LDL Cholesterol Calculated 119(H) <100 mg/dL [facility] Comment:Desirable LDL: less than 100 mg/dLNear Optimal/Above Optimal LDL: 110- 129 mg/dLBorderline High LDL: 130-159 mg/dLHigh LDL: 160-189 mg/dLVery High LDL: greater than or equal to 190 mg/dL HDL Cholesterol 41 >40 mg/dL [facility] Comment:Desirable HDL: great er than 40 mg/dL Note: This HDL assay may give artificially low results in patients with liver disease. Blood Venous blood specimen / Unknown 09/21/2024 8:33 AM EDT 09/21/2024 11:03 AM EDT us Golden Name LAB BLOOD ORDERABLES Final Resul t [facility] [address] [place] [phone] from Last 3 Months or Most Recently Relevant to Health Maintenance Insurance [facility] C[facility] Care Teams Pharmacist In Charge Relationship Specialty Start Date End Date Name, MD Golden [address] [place] [address] PCP - General Internal Medicine 09/20/24
== END 2025-04-04 14:57 | disposition home or self-care (01) ==
LOC: HO.HGS 14:34
PROVIDERS: PCP Internal Medicine Geriatric Medicine; Visit Provider Surgery
DX: R22.2 Localized swelling, mass and lump, trunk (principal)
CPT/HCPCS: 99213

== ENCOUNTER → 2025-04-04 14:34 | Outpatient (BNVA) | payer MEDICAID, SELFPAY | PROVIDERS: PCP Internal Medicine Geriatric Medicine; Visit Provider Surgery | DX: R22.2 Localized swelling, mass and lump, trunk (principal) | CPT/HCPCS: 99212 ==

== ENCOUNTER 2025-04-08 08:27 | Outpatient (AMB) | payer MEDICAID, SELFPAY ==
--- NOTE | 2025-04-08 09:58 | MHC.OFFVISWM ---
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 BMI 35.5 *MARKETING DIRECTOR*: Details: Start time: 9.48am, End time: 10.33am ?I spent 36 minutes speaking with the patient on the phone plus an additional 5 minutes reviewing and updating records for a total of 45 minutes HPI Comments Details: Previous weight loss efforts: LSG (pre-LSG weight: 234lbs, lowest: 165lbs), the patient tried Phentermine 6 months ago but given her history of hypertension it raised the blood pressure to 160/100 and had to be discontinued Wakes up: 5.30am, Sleeps: 11pm Breakfast: 9am (eggs, lopez, toast) Lunch: 2pm (meat, rice, meat) Dinner: 6.30pm (same) Snacks: 11am (seeds, nuts, crackers), 4pm (cheese), 8-9pm (cheese, seeds) Exercise: Gym x3/wk Beverages: Coffee: (2 cups/d with cream), Tea: occasionally, Soda: none, Juice: (1/wk), ETOH: rarely PFSH Medical History (Updated 04/08/25 @ 10:27 by Daniel Smiley MD) BMI 34.0-34.9,adult Obesity Abdominal wall mass Abdominal wall fluid collections Epigastric hernia Migraine with visual aura Helicobacter positive gastritis Endometriosis Dysmenorrhea Binge eating disorder Class 1 obesity due to excess calories with serious comorbidity and body mass index (BMI) of 33.0 to 33.9 in adult Generalized anxiety disorder Essential hypertension Seasonal allergies Post traumatic stress disorder (PTSD) Acanthosis nigricans Abnormal facial hair Bilateral carpal tunnel syndrome Adjustment disorder with anxious mood Uses intrauterine device for control History of Holter monitoring Fibroids Osteoarthritis of right hand Surgical History Hx of umbilical hernia repair Hx of cholecystectomy S/P gastric sleeve procedure Social History Household Members: Children Housing: Apartment Are you a primary out of school hours care worker to a significant other at home: Yes Do you presently have visiting nurse or other home services: No Alcohol intake: current Alcohol intake frequency: holidays/special occasions only Patient Tobacco Use Status: Never used Tobacco service: No Current occupational status: employed Telehealth Telehealth Telehealth Platform: Telephone Location of provider rendering services: practice address Location of patient: address on file Patient Identification confirmed using: Name, : Yes Telehealth method: voice only Patient verbally consented to treatment: Yes Patient verbally consented to billing insurance company: Yes Patient informed of any privacy concerns related to visit: Yes Minutes spent on Phone/Video with Pt.: 45 Assessment & Plan Assessment & Plan (1) Obesity: Code(s): E66.9 - Obesity, unspecified Category: Medical Qualifiers: Obesity type: due to excess calories Obesity classification: adult class 1 (BMI 30 - 34.9) Serious obesity comorbidity presence: with serious comorbidity Body mass index: BMI 34.0-34.9 Qualified Code(s): E66.811 - Obesity, class 1; E66.09 - Other obesity due to excess calories; Z68.34 - Body mass index [BMI] 34.0-34.9, adult Plan: 1. We discussed all available options for weight loss: 1) endoscopy to assess the anatomy of the previous sleeve and determine a revision would be useful, 2) weight loss medications in conjunction with our lifestlyle program. The patient opted for the second option. The patient has already tried Phentermine that had to be discontinued due a significant elevation of the blood pressure to 160/100. The patient has medically treated hypertension (on Losartan). 2. I ordered a medication to help you with the weight loss which is called Zepbound. My office will try to authorize it. Please let me know when you receive it so I can give you a meal and exercise plan. Common side effects include nausea, vomiting, constipation, diarrhea, abdominal pain. Please let me know if you develop any of these symptoms. Medications: New tirzepatide (weight loss) (Zepbound) for 4 weeks 2.5 mg (0.5 mL) subcut QWEEK 2 mL 0RF E66.9 - Obesity, unspecified, I10 - Essential (primary) hypertension, Z68.34 - Body mass index [BMI] 34.0-34.9, adult
== END 2025-04-08 10:33 | disposition home or self-care (01) ==
LOC: HO.HBS 08:27
PROVIDERS: PCP Internal Medicine Geriatric Medicine; Visit Provider Surgery
DX: E66.811 Obesity, class 1 (principal); Z68.34 Body mass index [BMI] 34.0-34.9, adult
CPT/HCPCS: 99204

== ENCOUNTER 2025-04-30 17:19 | Outpatient (REF) | payer MEDICAID, SELFPAY ==
--- OUTSIDE RECORDS SUMMARY | 2025-04-30 10:15 | XMS_ITS | Encounter Summary ---
Author Organization [employer] Address [address] [facility] [place] [address] [place] [address] Care Team Providers Care Mixer Wet Pour Name Role Phone Name, Golden NOLASCO Primary Care Provider [phone] Reason for Visit * Reason Comments Follow-up Vaginal Discharge Encounter Details Date Type Department Care Team ([facility] Contact Info) Description 04/30/2025 10:15 AM EST Office Visit [facility] [address] [place], [place] [phone] Name, MD Golden [address] [place] [address] Depression with anxiety (Primary Dx); Low vitamin D level; Vaginal discharge Social History Tobacco Use Types Packs/Day Years [...] Sign Reading Time Taken Comments Blood Pressure 128/79 04/30/2025 10:28 AM EST Pulse 88 04/30/2025 10:28 AM EST Temperature 37.2 C (98.9 F) 04/30/2025 10:28 AM EST Respiratory Rate 20 04/30/2025 10:28 AM EST Oxygen Saturation - - Inhaled Oxygen Concentration - - Weight 90.3 kg (199 lb) 04/30/2025 10:28 AM EST Height 160 cm (5' 3 ) 04/30/2025 10:28 AM EST Body Mass Index 35.25 04/30/2025 10:28 AM EST documented in this encounter Progress Notes * Golden Mclaughlin MD - 04/30/2025 10:15 AM EST Subjective Patient ID: Luisana Fine is a 40 y.o. female who presents for Follow-up and Vaginal Discharge. Patient comes for a follow-up visit. She complains of symptoms of depression, anxiety, insomnia. She denies any recent migraines. On her last visit I prescribed her Effexor that she did not find veryhelpful. She has been talking to a counselor that she does not find to be very helpful either. She is not suicidal or homicidal. She would like to try different medication for symptoms of depression and anxiety. She complains of 2 months of foul-smelling vaginal discharge on and off. The patient is in a monogamous relationship. She does not suspect she has an STI. We discussed results of recent blood work she had done at [facility] weight management clinic. I recommended to start vitamin D supplementation and she agreed. Review of Systems Constitutional: Negative for chills and fever. HENT: Negative for sore throat. Respiratory: Negative for cough, shortness of breath and wheezing. Cardiovascular: Negative for chest pain, palpitations and leg swelling. Gastrointestinal: Negative for abdominal pain. Psychiatric/Behavioral: Positive for sleep disturbance. Negative for self-injury and suicidal ideas. The patient is nervous/anxious. See HPI Objective Vitals: 04/30/25 1028 BP: 128/79 BP Location: Left arm Patient Position: Sitting BP Cuff Size: Adult Pulse: 88 Resp: 20 Temp: 98.9 ??F (37.2 ??C) TempSrc: Oral Weight: 199 lb (90.3 kg) Height: 5' 3 (1.6 m) Physical Exam Constitutional: Appearance: Normal appearance. Cardiovascular: Rate and Rhythm: Normal rate and regular rhythm. Pulmonary: Effort: Pulmonary effort is normal. Breath sounds: Normal breath sounds. Neurological: Mental Status: She is alert. Assessment/Plan Diagnoses and all orders for this visit: Depression with anxiety Comments: I recommended to start sertraline. We discussed the benefits and side effects of the medication, continue counseling, follow-up in 8 weeks Low vitamin D level Comments: Start vitamin D supplementation Vaginal discharge Comments: Check testing listed below and further recommendation based on the results Orders: - Chlamydia/N. Gonorrhoeae RNA, TMA, Vaginal - Bacterial Vaginosis Panel Other orders - cholecalciferol (Vitamin D-3) 25 MCG (1000 UT) tablet; Take 1 tablet (25 mcg) by mouth Once per day. - sertraline (Zoloft) 25 MG tablet; Take 1 tablet (25 mg) by mouth Once per day for 7 days, THEN 2 tablets (50 mg) Once per day. Future Appointments Date Time Provider Department Center 06/14/2025 10:[address] [facility] documented in this encounter Plan of Treatment Upcoming Encounters Date Type Department Care Team (Late st Contact Info) Description 06/14/2025 10:00 AM EST Nutrition [facility] [address] [place] [address] Crystal Welch, RD [address] [place] [address] documented as of this encounter Procedures Procedure Name Priority Date/Time Associated Diagnosis Comments BACTERIAL VAGINOSIS PANEL Routine 04/30/2025 10:58 AM EST Vaginal discharge CHLAMYDIA/N. GONORRHOEAE RNA, TMA, UROGENITAL Routine 04/30/2025 10:58 AM EST Vaginal discharge documented in this encounter Results * Bacterial Vaginosis Panel (04/30/2025 10:58 AM EST) TRICHOMONAS VAGINALIS DETECTION BY PCR NOT DETECTED Not Detect [facility] BACTERIAL VAGINOSIS DETECTION BY PCR NEGATIVE Negative [facility] Comment:The BV organism targ ets of the Xpert Xpress MVP test can becommensal in women; Xpert Xpress MVP positive results forbacterial vaginosis should be considered in conjunction withother clinical and patient information to determine thedisease status. Organisms that are not detected by the XpertXpress MVP test have also been reported to be associatedwith BV and aerobic vaginitis.The Xpert Xpress MVP test performance has not been evaluatedin patients under the age of 14. MARANDA GROUP DETECTION BY PCR NOT DETECTED Not Detect [facility] Maranda glab krusei PCR NOT DETECTED Not Detect [facility] Swab Vaginal structure / Unknown 04/30/2025 10:58 AM EST 04/30/2025 5:20 PM EST us Golden Mclaughlin MD LAB MICROBIOLOGY - GENERAL ORDER AYO Final Result [facility] [address] [place] [phone] [phone] * Chlamydia/N. Gonorrhoeae RNA, TMA, Vaginal (04/30/2025 10:58 AM EST) CT PCR NOT DETECTED Not Detect. [facility] Comment:A not detected test result does not exclude the possibilityof infection because test results can be affected byimproper specimen collection, concurrent antibiotic therapy,or the number of organisms in the specimen which may bebelow the sensitivity of the test. As with many diagnostictests, results from the Xpert CT/NG assay should beinterpreted in conjunction with other laboratory andclinical data available to the clinician.Xpert CT/NG performance has not been evaluated in patientsless than 14 years of age. The assay should not be used forthe evaluationof suspected sexual abuse or for other medico-legalindications. Additional testing is recommended in anycircumstance when false positive or false negative resultscould lead to adverse medical, social or psychologicalconsequences. NG PCR NOT DETECTED Not Detect. [facility] Comment:A not detected test result does not exclude the possibilityof infection because test results can be affected byimproper specimen collection, concurrent antibiotic therapy,or the number of organisms in the specimen which may bebelow the sensitivity of the test. As with many diagnostictests, results from the Xpert CT/NG assay should beinterpreted in conjunction with other laboratory andclinical data available to the clinician.Xpert CT/NG performance has not been evaluated in patientsless than 14 years of age. The assay should not be used forthe evaluationof suspected sexual abuse or for other medico-legalindications. Additional testing is recommended in anycircumstance when false positive or false negative resultscould lead to adverse medical, social or psychologicalconsequences. Swab (Vaginal Swab) 04/30/2025 10:58 AM EST 04/30/2025 5:20 PM EST Golden Mclaughlin MD LAB MICROBIOLOGY - GENERAL ORDER AYO Final Result [facility] [address] [place] [phone] documented in this encounter Visit Diagnoses Diagnosis Depression with anxiety- Primary Dysthymic disorder Low vitamin D level Vaginal discharge Leukorrhea, not specified as infective documented in this encounter Additional Health Concerns Assessment Noted Time PHQ-9 Depression Total Score: 16 025 11:16 AM EDT documented as of this encounter Care Teams Mixer Wet Pour Relationship Specialty Start Date End Date Name, MD Golden [address] [place] [address] PCP - General Internal Medicine 09/20/24 documented as of this encounter
[2025-04-30 18:39] LABS: Bacterial Vaginosis PCR NEGATIVE (Negative); Candida Group PCR NOT DETECTED (Not Detect); Candida glab krusei PCR NOT DETECTED (Not Detect); Trichomonas vaginalis PCR NOT DETECTED (Not Detect)
[2025-04-30 19:09] LABS: CT PCR NOT DETECTED (Not Detect.); NG PCR NOT DETECTED (Not Detect.)
--- OUTSIDE RECORDS SUMMARY | 2025-04-30 19:13 | XMS_ITS | Encounter Summary ---
Author Organization [employer] Address [address] [place] [address] Care Team Providers Care Continuous Improvement Lead Name Role Phone Name, Golden NOLASCO Primary Care Provider [phone] Reason for Visit * Reason Comments Med Refill Encounter Details Date Type Department Care Team ([facility] st Contact Info) Description 01/08/2025 Refill [facility] [address] [place] [address] Abraham Moise MD [address] [place] [address] Social History Tobacco Use Types Packs/Day Years [...] Info) Description 06/14/2025 10:00 AM EST Nutrition [facility] [address] [place] [address] [place] [address] documented as of this encounter Visit Diagnoses Not on filedocumented in this encounter Additional Health Concerns Assessment Noted Time PHQ-9 Depression Total Score: 16 025 11:16 AM EDT documented as of this encounter Care Teams Continuous Improvement Lead Relationship Specialty Start Date End Date Name, MD Golden [address] [place] [address] PCP - General Internal Medicine 09/20/24 documented as of this encounter
--- OUTSIDE RECORDS SUMMARY | 2025-04-30 19:13 | XMS_ITS | Encounter Summary ---
Author Organization [employer] Address [address] [facility] [address] [place] [address] Care Team Providers Care Ornamental Plaster Sticker Name Role Phone Name, Golden NOLASCO Primary Care Provider [phone] Encounter Details Date Type Department Care Team (Latest Contact Info) Description 04/30/2025 Travel Social History Tobacco Use Types Packs/Day Years [...] Info) Description 06/14/2025 10:00 AM EST Nutrition [facility] [address] [place] [address] [place] [address] documented as of this encounter Visit Diagnoses Not on filedocumented in this encounter Additional Health Concerns Assessment Noted Time PHQ-9 Depression Total Score: 16 025 11:16 AM EDT documented as of this encounter Care Teams Ornamental Plaster Sticker Relationship Specialty Start Date End Date Name, MD Golden [address] [place] [address] PCP - General Internal Medicine 09/20/24 documented as of this encounter
--- OUTSIDE RECORDS SUMMARY | 2025-04-30 19:13 | XMS_ITS | Encounter Summary ---
Author Organization [employer] Address [address] [facility] [address] [place] [address] Care Team Providers Care Punch Out Crew Member Name Role Phone Name, Golden NOLASCO Primary Care Provider [phone] Reason for Visit * Reason Onset Date Comments Med Refill 04/29/2025 Encounter Details Date Type Department Care Team (Late st Contact Info) Description 04/29/2025 Refill [facility] [address] [place] [address] Abraham Moise MD [address] [place] [address] Social History Tobacco Use Types Packs/Day Years [...] Info) Description 06/14/2025 10:00 AM EST Nutrition [facility]NUTRITION [address] [place] [address] Crystal Welch, RD [address] [place] [address] documented as of this encounter Visit Diagnoses Not on filedocumented in this encounter Additional Health Concerns Assessment Noted Time PHQ-9 Depression Total Score: 16 025 11:16 AM EDT documented as of this encounter Care Teams Punch Out Crew Member Relationship Specialty Start Date End Date Name, MD Golden [address] [place] [address] PCP - General Internal Medicine 09/20/24 documented as of this encounter
--- OUTSIDE RECORDS SUMMARY | 2025-04-30 19:13 | XMS_ITS | Encounter Summary ---
Author Organization [employer] Address [address] [facility] [address] [place] [address] Care Team Providers Care Chemical Operations And Training Name Role Phone NameGolden MD Primary Care Provider Reason for Referral * Consultation (Routine) - Authorized Specialty Diagnoses / Procedures Referred By Saira yang Referred To Contact Sleep Medicine Diagnoses Habitual snoring Excessive daytime sleepiness Morning headache NameGolden MD [address] [place] [address] Phone: tel: fax: Sleep Medicine Service [address], [address] [place] [address] Phone: tel: fax: Referral ID Status Reason Start Date Expiration Date Visits Requested Visits Authorized [id number] Authorized Specialty Services Required 04/29/2026 6 6 Reason for Visit * Reason Onset Date Comments Referral 04/19/2025 Encounter Details Date Type Department Care Team ([facility] Contact Info) Description 04/19/2025 Telephone [facility] [address] [place], [place] [phone] Golden Mclaughlin MD [address] [place], [place] [phone] Referral Social History Tobacco Use Types Packs/Day Years [...] encounter Miscellaneous Notes * Telephone Encounter - Mariah Lynn RN - 04/30/2025 10:32 AM EST Images from the original note were not included. TC placed to pt via S director digital (ID#[id number]) to inform and advise of below PCP message. No answer, LVM to call office back and ask to speak to the blue team nurses. Golden Mclaughlin MD EN 04/28/25 8:26 AM Note I will put the referral to sleep medicine in [facility] * Telephone Encounter - Golden Mclaughlin MD - 04/28/2025 8:26 AM EST I will put the referral to sleep medicine in [facility] * Telephone Encounter - Mariah Lynn RN - 04/24/2025 1:43 PM EST TC placed to pt via [employer] director digital (ID#[id number]) regarding referral request for new sleep apnea test.Pt reports they had a test done in 2017 where they were using a machine for their sleep apnea, but they have not been using it. Pt reports they were advised by weight loss clinic to request referral from PCP. Pt reports they suffer from migraines and the medication prescribed does not help. Pt reports headaches are constant. Pt denies headache at time of call. Pt reports they had a headache this morning rated at 8/10 that started at the nape of their neck. Pt reports their headaches wake them up at night. Pt reports they are having episodes where they stop breathing in their sleep. Pt reportsthis makes them wake up from sleeping. Pt reports they were advised to ask PCP for referral for sleep apnea test. Advised pt message to be sent to PCP for review. Pt verbalized understanding and reports they will see PCP for appointment on 04/30/25. Message forwarded to PCP for review. * Telephone Encounter - Sunny Moseley - 04/19/2025 11:14 AM EST Tc from pt requesting a new referral for a new sleep apnea test Contact pt at [phone] documented in this encounter Plan of Treatment Upcoming Encounters Date Type Department Care Team (Late st Contact Info) Description 06/14/2025 10:00 AM EST Nutrition [facility] [address] [place] [address] [place] [address] Scheduled Referrals Name Type Priority Associated Diagnoses Orde r Schedule Referral to Sleep Medicine Outpatient Referral Routine Habitual snoring Excessive daytime sleepiness Morning headache Expected: 04/28/2025 (Approximate), Expires: 04/28/2026 documented as of this encounter Visit Diagnoses Diagnosis Habitual snoring- Primary Excessive daytime sleepiness Morning headache documented in this encounter Additional Health Concerns Assessment Noted Time PHQ-9 Depression Total Score: 16 025 11:16 AM EDT documented as of this encounter Care Teams Chemical Operations And Training Relationship Specialty Start Date End Date Name, MD Golden [address] [place] [address] PCP - General Internal Medicine 09/20/24 documented as of this encounter
--- OUTSIDE RECORDS SUMMARY | 2025-04-30 19:13 | XMS_ITS | Clinical Summary ---
Author Organization [employer] Address [address] [facility] [address] [place] [address] Care Team Providers Care Calender Wind Up Helper Name Role Phone Name, Golden NOLASCO Primary Care Provider [phone] Allergies Active Allergy Reactions Criticality Noted Date Comments Chlorthalidone Dizziness 05/25/2024 Dizziness and imbalance Medications * This document contains information received from the source organization and may not represent a complete record from that organization. Blood Pressure kitIndications: Essential hypertension Use once a day 1 kit 09/21/19 25 Active lidocaine (Lidoderm) 5 % patch Apply 1 patch topically Once per day. Remove & discard patch within 12 hours or as directed by MD. 30 patch 2 5 9:41 AM EST 10/18/19 25 026 Active losartan (Cozaar) 50 MG tablet Take 1 tablet (50 mg) by mouth Once per day. 30 tablet 11 03/01/20 25 026 Active tiZANidine (Zanaflex) 2 MG tablet TAKE 1 TABLET BY MOUTH IN THE MORNING AND AT BEDTIME NEEDED FOR MUSCLE SPASMS 30 tablet 1 5 2:01 PM EST 04/30/20 25 Active cholecalciferol (Vitamin D-3) 25 MCG (1000 UT) tabletIndicatio ns:Vitamin D Deficiency Take 1 tablet (25 mcg) by mouth Once per day. 90 tablet 3 5 2:01 PM EST 04/30/20 25 026 Active sertraline (Zoloft) 25 MG tablet Take 1 tablet (25 mg) by mouth Once per day for 7 days, THEN 2 tablets (50 mg) Once per day. 67 tablet 2 5 2:01 PM EST 04/30/20 25 026 Active tiZANidine (Zanaflex) 2 MG tablet Take 1 tablet (2 mg) by mouth if needed in the morning and at bedtime for muscle spasms. 30 tablet 1 10/18/19 25 025 Discontinued(Re order (will not trigger notification to Pharmacy)) venlafaxine XR (Effexor XR) 37.5 MG 24 hr capsuleIndicati ons:Major depressive disorder, recurrent episode with anxious distress (CMS/HCC),Migra ine with visual aura Take 1 capsule (37.5 mg) by mouth Once per day. Do not crush or chew. 30 capsule 2 03/01/20 25 025 Discontinued(Th erapy completed) Active Problems Problem Noted Date Diagnosed Date Major depressive disorder, r ecurrent episode with anxious distress 03/01/2025 Binge eating disorder 09/19/2024 Dysmenorrhea 09/19/2024 Endometriosis 09/19/2024 Helicobacter positive gastritis 09/19/2024 Migraine with visual aura 09/19/2024 Uses Slovenian as primary spoken language 09/20/19 Generalized anxiety disorder 04/15/2022 Essential hypertension 02/25/2022 Seasonal allergies 10/21/2021 PTSD (post-traumatic stress disorder) 11/14/2019 Abnormal facial hair 12/10/2018 Acanthosis nigricans 12/10/2018 History of weight loss surgery 12/10/2018 Bilateral carpal tunnel syndrome 11/14/2018 Overview (09/19/2024): Per [facility] 09/15/2018 Electromyography reports Impression: abnormal study. 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 Expires on 08/03/24. Managed by [facility] perdue women History of Holter monitoring 08/07/2018 Overview (09/19/2024): [facility] Holter Report -07/20/18 Predominant rhythm is normal [...] 06/16/2018 Overview (09/19/2024): Left Hand Xray-03/30/18 at [facility] Impression: Negative. No abnormal bony growth is seen the DIP Joints. Intermittent pain and swelling of hand 9 Osteoarthritis of right hand 06/15/2018 Overview (09/19/2024): Right Hand Xray-03/30/18 at [facility]: There is mild DIP joint space [...] Encounters Date Type Department Care Team Description 04/30/2025 10:15 AM EST Office Visit [address] [address] Golden Mclaughlin MD Depression with anxiety (Primary Dx); Low vitamin D level; Vaginal discharge 04/30/2025 Travel 04/29/2025 Travel 04/29/2025 Refill [facility] [address] [place] [phone] Abraham Moise MD 04/19/[address] [address] Golden Mclaughlin MD Referral 03/01/2025 9:15 AM EDT Office Visit [address] [place] [address] Name, MD Golden Essential hypertension (Primary Dx); Complex cyst of uterine adnexa; Major depressive disorder, recurrent episode with anxious distress (CMS/HCC); Migraine with visual aura; Menorrhagia with irregular cycle; Class 2 obesity due to excess calories without serious comorbidity with body mass index (BMI) of 35.0 to 35.9 in adult; Encounter for immunization 03/01/2025 Travel 02/28/2025 Telephone [facility] [address] [place] [address] Name, MD Golden Chart Prep 02/25/2025 Travel from Last 3 Months Immunizations Immunization Administration [...] 20 04/30/2025 10:28 AM EST Oxygen Saturation 98% 03/01/2025 9:16 AM EDT Inhaled Oxygen Concentration - - Weight 90.3 kg (199 lb) 04/30/2025 10:28 AM EST Height 160 cm (5' 3 ) 04/30/2025 10:28 AM EST Body Mass Index 35.25 04/30/2025 10:28 AM EST Plan of Treatment Upcoming Encounters Date Type Department Care Team (Late st Contact Info) Description 06/14/2025 10:00 AM EST Nutrition [facility] [address] [place] [address] [place] [address] Health Maintenance Due Date Last Done Comments Family Planning (PISQ) 1998 HPV Vaccines (1 - 3-dose series) 1998 Hepatitis C Screening 2001 Hepatitis B Vaccines (1 of 3 - 19+ 3-dose series) 2002 Pap Smear 2004 Cervical Cancer Screening 2013 HPV/Cotest 2013 Mammogram 2023 COVID-19 Vaccine ( season) 2024 12/26/2020, 12/05/2020 Depression Monitoring 2025 09/20/2024, 025 SDOH Screening 09/12/2025 09/12/2024 Alcohol/Substance Use Screening 09/20/2025 09/20/2024 Disability Screening 10/29/2025 10/29/2024 Tobacco Screening 03/01/2026 03/01/2025 DTaP/Tdap/Td Vaccines (2 - Td or Tdap) 04/12/2029 04/12/2019 Lipid Panel 04/30/2030 04/30/2025, 09/21/2024 Zoster Vaccines (1 of 2) 2033 [...] Routine 04/30/2025 10:58 AM EST Vaginal discharge INSULIN Routine 04/30/2025 7:38 AM EST TSH W/REFLEX TO FT4 Routine 04/30/2025 7 :38 AM EST VITAMIN D,25-OH,TOTAL,IA Routine 04/30/2025 7:38 AM EST FERRITIN Routine 04/30/2025 7:38 AM EST VITAMIN B12/FOLATE, SERUM PANEL Routine 04/30/2025 7:38 AM EST HEMOGLOBIN A1C Routine 04/30/2025 7:38 AM EST LIPID PANEL, STANDARD Routine 04/30/2025 7:38 AM EST C-REACTIVE PROTEIN Routine 04/30/2025 7: 38 AM EST IRON AND TOTAL IRON BINDING CAPACITY Routine 04/30/2025 7:38 AM EST COMPREHENSIVE METABOLIC PANEL Routine 04/30/2025 7:38 AM EST CBC WITH AUTO DIFFERENTIAL Routine 04/30/2025 7:38 AM EST AMB REFERRAL TO OB-BUSINESS ANALYSIS ANALYST Routine 02/20/2025 Complex cyst of uterine adnexa from Last 3 Months Results * Bacterial Vaginosis Panel (04/30/2025 10:58 AM EST) TRICHOMONAS VAGINALIS DETECTION BY PCR NOT DETECTED Not Detect [facility] BACTERIAL VAGINOSIS DETECTION BY PCR NEGATIVE Negative [facility] Comment:The BV organism targ ets of [...] DETECTION BY PCR NOT DETECTED Not Detect [facility] Maranda glab krusei PCR NOT DETECTED Not Detect [facility] Swab Vaginal structure / Unknown 04/30/2025 10:58 AM EST 04/30/2025 5:20 PM EST us Golden Mclaughlin MD LAB MICROBIOLOGY - GENERAL ORDER AYO Final Result [facility] [address] [place] [phone] * Chlamydia/N. Gonorrhoeae RNA, TMA, Vaginal (04/30/2025 10:58 AM EST) CT PCR NOT DETECTED Not Detect. [facility] Comment:A not detected test result does [...] psychologicalconsequences. NG PCR NOT DETECTED Not Detect. [facility] Comment:A not detected test result does [...] MICROBIOLOGY - GENERAL ORDER AYO Final Result Performing Organization Address [facility] Co de Phone Number [facility] [address] [place] [address] [phone] * (ABNORMAL) Vitamin D, 25-Hydroxy, Total, Immunoassay (04/30/2025 7:38 AM EST) Vitamin D 25-OH Total 17.7(L) >30 ng/mL [facility] Comment: Health Based Reference Values*< 20 ng/mL Kulqumhty85-05 ng/mL Insufficient> 30 ng/mL Sufficient*Santy ARROYO. N Engl J Med. 2007;357:266-280There is no well-established upper level of normal vitamin Dlevels. Some laboratories use 50 ng/mL as an upper limit ofnormal. However, toxicity is patient-dependent and may occurat any level. Careful correlation with the patient'spresentation is necessary and, if there is concern forvitamin D toxicity, treatment should be consideredirrespective of the serum level.Care must be taken in interpreting Vitamin D results fromdifferent laboratories and methodologies. Published datademonstrated that results from patients undergoinghemodialysis may show a negative bias when tested withvarious automated 25-OH vitamin D assays when compared toLC-MS/MS.When testing samples from patients whose predominant form ofVitamin D is Vitamin D2, such as patients receiving VitaminD2 supplementation, results that are subtherapeutic shouldbe confirmed with another method such as LC-MS/MS. 04/30/2025 7:38 AM EST 04/30/2025 7:38 AM EST us Generic External Data Provider LAB BLOOD ORDERAB LES Final Result Performing Organization Address City/[facility]/ZIP Co de Phone Number [facility] [address] [place] [address] [phone] * Vitamin B12 (Cobalamin) and Folate Panel, Serum (04/30/2025 7:38 AM EST) Vitamin B12 375 200 - 900 pg/mL [facility] Comment:NORMAL 200-900 PG/ML INDETERMINATE 160-199 PG/ML DEFICIENT < 160 PG/ML Folate 7.6 > or = 4.0 ng/mL [facility] Comment:Reference Values:> o r = 4.0 ng/mL< 4.0 ng/mL suggests folate deficiency Methotrexate, aminopterin and folinic acid(leucovorin) are chemotherapeutic agents whose molecularstructures are similar to folate; therefore, the Architectfolate assay cannot be used for patients using these drugs. 04/30/2025 7:38 AM EST 04/30/2025 7:38 AM EST us Generic External Data Provider LAB BLOOD ORDERAB LES Final Result Performing Organization Address City/[facility]/ZIP Co de Phone Number [facility] [address] [place] [phone] * TSH with Reflex to Free T4 (04/30/2025 7:38 AM EST) Pathologist [facility] TSH reflex Free T4 2.59 0.32 - 4.0 uIU/mL [facility] 04/30/2025 7:38 AM EST 04/30/2025 7:38 AM EST us Generic External Data Provider LAB BLOOD ORDERAB LES Final Result Performing Organization Address City/[facility] Co de Phone Number [facility] [address] [place] [phone] * (ABNORMAL) CBC auto differential (04/30/2025 7:38 AM EST) [facility] White Blood Count 7.4 4.8 - 10.8 X10*3/uL [facility] Red Blood Count 4.61 4.20 - 5.50 X10*6/uL [facility] Hemoglobin 13.1 12.0 - 16.0 g/dl [facility] Hematocrit 40.6 37.0 - 47.0 % [facility] Mean Corpuscular Volume 88.1 80.0 - 98.0 fL [facility] Mean Corpuscular Hemoglobin 28.4 27.0 - 33.0 pg [facility] Mean Corpuscular HGB Conc 32.3 31.0 - 35.0 g/dl [facility] Red Cell Distribution Width 12.9 11.0 - 16.0 % [facility] Platelet Count 150(L) 160 - 400 X10*3/uL [facility] Mean Platelet Volume 11.0 9.4 - 12.3 fL [facility] Neutrophils Percent Auto 60.0 45 - 73 % [facility] Imm Gran Pct Auto 0.4 0.0 - 0.4 % [facility] Lymphocytes Percent Auto 29.8 20 - 40 % [facility] Monocytes Percent Auto 8.3 2 - 11 % [facility] Eosinophils Percent Auto 0.8 0 - 4 % [facility] Basophils Percent Auto 0.7 0 - 2 % [facility] NRBC Pct Auto 0.0 0.0 - 0.2 /100WBC [facility] Neutrophils Absolute Auto 4.4 2.0 - 8.3 x10*3/uL [facility] Imm Gran Abs Auto 0.03 0.00 - 0.03 X10*3/uL [facility] Lymphocytes Absolute Auto 2.2 1.2 - 4.9 X10*3/uL [facility] Monocytes Absolute Auto 0.6 0.1 - 1.2 X10*3/uL [facility] Eosinophils Absolute Auto 0.1 0.0 - 0.4 X10*3/uL [facility] Basophils Absolute Auto 0.1 0.0 - 0.2 X10*3/uL [facility] NRBC Abs Auto 0.000 0.0 - 0.012 X10*3/uL [facility] 04/30/2025 7:38 AM EST 04/30/2025 7:38 AM EST Generic External Data Provider LAB BLOOD ORDERAB LES Final Result Performing Organization Address [facility] Co de Phone Number [facility] [address] [place] [phone] * Iron And Total Iron Binding Capacity (04/30/2025 7:38 AM EST) Iron 78 30 - 160 mcg/dL [facility] Total Iron Binding Capacity 281 228 - 428 mcg/dL [facility] Percent Iron Saturation 28 15 - 50 % [facility] Unsaturated Iron Binding 203 ug/dL [facility] 04/30/2025 7:38 AM EST 04/30/2025 7:38 AM EST Generic External Data Provider LAB BLOOD ORDERAB LES Final Result Performing Organization Address [facility] de Phone Number [facility] [address] [place] [phone] * Insulin (04/30/2025 7:38 AM EST) Insulin 14 2 - 29 uU/mL [facility] Comment:This test was perfor med using the Baker chemiluminescentmethod. Values obtained from different assay methods cannot beused interchangeably. This insulin assay shows a possiblecross-reactivity with antibodies generated against insulin(immunoreactive insulin and some patients treated withbovine or porcine insulin). Insulin levels may be measuredlower in patients with insulin autoimmune syndrome orfamilial high pro-insulinemia. 04/30/2025 7:38 AM EST 04/30/2025 7:38 AM EST Generic External Data Provider LAB BLOOD ORDERAB LES Final Result Performing Organization Address [facility] Co de Phone Number [facility] [address] [place] [phone] * C-reactive Protein (04/30/2025 7:38 AM EST) C Reactive Protein 0.44 < or = 0.50 mg/dL [facility] 04/30/2025 7:38 AM EST 04/30/2025 7:38 AM EST Generic External Data Provider LAB BLOOD ORDERAB LES Final Result Performing Organization Address [facility] Co de Phone Number [facility] [address] [place] [phone] * Hemoglobin A1c (04/30/2025 7:38 AM EST) Hemoglobin A1c 5.6 <6.0 % [facility] Comment:Hemoglobin A1C Refer ence Range Adults: 4.8 - 6.0 % Non diabetic: < 6.0 % Goal: < 7.0 %Additional Action Suggested: > 8.0 %Note: Hemoglobin A1c results are invalid for patients with abnormal amounts of HbF. Blood transfusions may impact the HbA1c concentration in the patient sample. Estimated Average Glucose 114 mg/dL [facility] Comment:eAG = Estimated ave rage glucose which is %A1C expressed asaverage glucose, using the formula of the K7F-CagynkrKcalyca Glucose study (ADAG), Diabetes Care, Vol.31,#8,Nov. 2007 04/30/2025 7:38 AM EST 04/30/2025 7:38 AM EST Generic External Data Provider LAB BLOOD ORDERAB LES Final Result Performing Organization Address City/[facility]/ZIP Co de Phone Number [facility] [address] [place] [phone] * Ferritin (04/30/2025 7:38 AM EST) Ferritin 53 10 - 250 ng/mL [facility] 04/30/2025 7:38 AM EST 04/30/2025 7:38 AM EST Generic External Data Provider LAB BLOOD ORDERAB LES Final Result Performing Organization Address [facility]/ZIP Co de Phone Number [facility] [address] [place] [phone] * (ABNORMAL) Lipid Panel, Standard (04/30/2025 7:38 AM EST) Triglycerides 119 <150 mg/dL [facility] Comment:Desirable Triglyceri de: less than 150 mg/dLBorderline High Triglyceride 150-199 mg/dLHigh Triglyceride: 200-499 mg/dLVery High Triglyceride: greater than or equal to 5OO mg/dL Cholesterol 186 <200 mg/dL [facility] Comment:Desirable Cholestero l: less than 200 mg/dLBorderline High Cholesterol: 200-239 mg/dLHigh Cholesterol: greater than 239 mg/dL LDL Cholesterol Calculated 120(H) <100 mg/dL [facility] Comment:Desirable LDL: less than 100 mg/dLNear Optimal/Above Optimal LDL: 110- 129 mg/dLBorderline High LDL: 130-159 mg/dLHigh LDL: 160-189 mg/dLVery High LDL: greater than or equal to 190 mg/dL HDL Cholesterol 43 >40 mg/dL [facility] Comment:Desirable HDL: great er than 40 mg/dL Note: This HDL assay may give artificially low results in patients with liver disease. 04/30/2025 7:38 AM EST 04/30/2025 7:38 AM EST us Generic External Data Provider LAB BLOOD ORDERAB LES Final Result Performing Organization Address City/[facility]/ZIP Co de Phone Number [facility] [address] [place] [phone] * (ABNORMAL) Comprehensive Metabolic Panel (04/30/2025 7:38 AM EST) Sodium 140 135 - 145 mmol/L [facility] Potassium 4.0 3.3 - 5.1 mmol/L [facility] Chloride 107 96 - 108 mmol/L [facility] Carbon Dioxide 26 22 - 29 mmol/L [facility] Anion Gap 11(L) 12 - 20 [facility] Urea Nitrogen (BUN) 13 9 - 16 mg/dL [facility] Creatinine, Serum 0.71 0.5 - 1.4 mg/dL [facility] Creatinine Clr Calc Pharmacy TNP [facility] Comment:Unable to calculate eCrCL; all parameters not provided. Estimated Glomerular Filt Rate >60 [facility] Comment:Chronic Kidney Disea se: Estimated GFR < 60 mL/min/1.94q2Iotpdh Kidney Disease: Estimated GFR < 15 mL/min/1.73m2 Glucose 98 60 - 115 mg/dL [facility] Calcium 9.1 8.4 - 10.2 mg/dL [facility] Bilirubin, Total 0.6 0.0 - 1.0 mg/dL [facility] Aspartate Amino Transferase 20 5 - 31 U/L [facility] Alanine Aminotransferase 14 0 - 31 U/L [facility] Total Protein 7.5 6.5 - 8.0 g/dL [facility] Albumin Level 4.4 3.5 - 5.0 g/dL [facility] Alkaline Phosphatase 55 39 - 117 U/L [facility] 04/30/2025 7:38 AM EST 04/30/2025 7:38 AM EST us Generic External Data Provider LAB BLOOD ORDERAB LES Final Result Performing Organization Address City/State/[facility] Co de Phone Number [facility] [address] [place] [phone] * Referral to Obstetrics / Gynecology (02/20/2025) us Golden Name OUTPATIENT REFERRAL ORDERABLES F inal Result from Last 3 Months Insurance [facility] C3 Care Teams Calender Wind Up Helper Relationship Specialty Start Date End Date Name, MD Golden [address] [place] [address] PCP - General Internal Medicine 09/20/24
--- OUTSIDE RECORDS SUMMARY | 2025-04-30 19:13 | XMS_ITS | Encounter Summary ---
Author Organization [employer] Address [address] [facility] [address] [place] [address] Care Team Providers Care Dance Hall Host/Hostess Name Role Phone Name, Golden NOLASCO Primary Care Provider [phone] Encounter Details Date Type Department Care Team (Latest Contact Info) Description 04/29/2025 Travel Social History Tobacco Use Types Packs/Day [...] Info) Description 06/14/2025 10:00 AM EST Nutrition [facility] [address] [place] [address] [place] [address] documented as of this encounter Visit Diagnoses Not on filedocumented in this encounter Additional Health Concerns Assessment Noted Time PHQ-9 Depression Total Score: 16 025 11:16 AM EDT documented as of this encounter Care Teams Dance Hall Host/Hostess Relationship Specialty Start Date End Date Name, MD Golden [address] [place] [address] PCP - General Internal Medicine 09/20/24 documented as of this encounter
== END 2025-04-30 17:20 ==
LOC: HO.HHCLNP 17:19
PROVIDERS: Visit Provider Internal Medicine Geriatric Medicine
DX: Z20.2 Contact with and (suspected) exposure to infections with a predominantly sexual mode of transmission (principal); N89.8 Other specified noninflammatory disorders of vagina
CPT/HCPCS: 81515; 87491; 87591